=== PATIENT | female | born 1945 ===

== ENCOUNTER 2017-02-14 03:22 | Emergency (ER) | payer MEDICARE ==
[2017-02-14 03:53] VITALS: BP 154/87; PULSE 92; RESP 16; TEMP 98.4; O2SAT 99
--- NOTE | 2017-02-14 04:14 | ED PDOC ---
Hyperglycemia/Hypoglycemia Time Seen by Provider: 02/14/17 03:46 Chief Complaint (Nursing): High Blood Sugar Chief Complaint (Provider): dizziness History Per: Patient History/Exam Limitations: no limitations Onset/Duration Of Symptoms: Hrs Current Symptoms Are (Timing): Still Present Severity: Mild : The patient does not have any of the infectious symptoms listed except for those marked. Additional Complaint(s): Patient is a 71 year old female, who has a history of diabetes, presents to the ED complaining of dizziness at 00:00 today. Patient reports she was playing a game on her phone when she felt the room spinning. Patient went to lay down and when she changed positions the room again felt like it was spinning. Patient also complains of mild temporal headache. Denies trauma. Patient feels better since arriving to the ED. PMD: Patrick Holloway NIHSS Stroke Scale - Date/Time Evaluation Performed Date Performed: 02/14/17 Time Performed: 04:13 When Was NIHSS Performed: Baseline - How Severe is the Stroke Level of Consciousness: 0=Alert LOC to Questions: 0=Both comments correct LOC to commands: 0=Obeys both correctly Best Gaze: 0=Normal Visual: 0=No visual loss Facial: 0=Normal Motor Arm - Left: 0=No drift Motor Arm - Right: 0=No drift Motor Leg - Left: 0=No drift Motor Leg - Right: 0=No drift Limb Ataxia: 0=Absent Sensory: 0=Normal Best Language: 0=No aphasia Dysarthia: 0=Normal articulation Extinction & Inattention (Neglect): 0=Normal, no object Score: 0 Past Medical History Reviewed: Historical Data, Nursing Documentation, Vital Signs Vital Signs: Last Vital Signs Temp 98.4 F 02/14/17 03:49 Pulse 92 H 02/14/17 03:49 Resp 16 02/14/17 03:49 BP 154/87 H 02/14/17 03:49 Pulse Ox 99 02/14/17 03:49 - Medical History PMH: Diabetes - Family History Family History: States: No Known Family Hx - Home Medications Home Medications: Ambulatory Orders Medication Instructions Recorded Meclizine [Meclizine*] 25 mg PO Q6 #30 tab 02/14/17 - Allergies Allergies/Adverse Reactions: Allergies Allergy/AdvReac Type Severity Reaction Status Date / Time No Known Allergies Allergy Unverified 06/09/15 15:27 Review of Systems ROS Statement: Except As Marked, All Systems Reviewed And Found Negative Constitutional: Negative for: Fever Gastrointestinal: Negative for: Nausea Neurological: Positive for: Dizziness Physical Exam - Reviewed Nursing Documentation Reviewed: Yes Vital Signs Reviewed: Yes - Physical Exam Appears: Positive for: Well, Non-toxic, No Acute Distress Head Exam: Positive for: ATRAUMATIC, NORMAL INSPECTION, NORMOCEPHALIC Skin: Positive for: Normal Color, Warm, DRY Cardiovascular/Chest: Positive for: Regular Rate, Rhythm. Negative for: Gallop , Murmur Respiratory: Positive for: Normal Breath Sounds. Negative for: Accessory Muscle Use, Rhonchi, Respiratory Distress Extremity: Positive for: Normal ROM Neurologic/Psych: Positive for: Alert, admissions coordinator II-XII (intact), Oriented, Cerebellar Tests (negative), Gait (steady). Negative for: Motor/Sensory Deficits, Facial Droop - Laboratory Results Result Diagrams: 02/14/17 04:38 02/14/17 04:38 - ECG O2 Sat by Pulse Oximetry: 99 (RA) Pulse Ox Interpretation: Normal Medical Decision Making Medical Decision Making: Time: 3:50 Impression: vertigo Plan: CT Head BMP Troponin UDip CBC Antivert 50 mg PO Toradol 15 mg IV UA 6:30 Patient is feeling much better no longer dizzy walking around ed well no headache. Return precautions given. Discussed results and plan with patient who expresses understanding. Counseling was provided regarding the diagnosis and prognosis. All questions answered and there is agreement with the plan to discharge home with instructions. Patient stable for discharge. Return if symptoms persist or worsen. Scribe Attestation: Documented by Viky Cuello acting as a scribe for Erik Armstrong MD. Scribe Attestation: All medical record entries made by the Scribe were at my direction and personally dictated by me. I have reviewed the chart and agree that the record accurately reflects my personal performance of the history, physical exam, medical decision making, and the department course for this patient. I have also personally directed, reviewed, and agree with the discharge instructions and disposition. Disposition - Clinical Impression Clinical Impression: Vertigo - Patient ED Disposition Is Patient to be Admitted: No Counseled Patient/Family Regarding: Studies Performed, Diagnosis, Rx Given - Disposition Referrals: Patrick Holloway MD [Primary Care Provider] - Disposition: Routine/Home Disposition Time: 06:30 Condition: IMPROVED Prescriptions: Meclizine [Meclizine*] 25 mg PO Q6 #30 tab Instructions: Benign Paroxysmal Positional Vertigo (ED) Print Language: ARABIC
--- NOTE | 2017-02-14 04:39 | CT ---
EXAM: CT Head Without Intravenous Contrast CLINICAL HISTORY: 71 years old, female; Signs and symptoms; Dizziness; Additional info: Headache, dizziness TECHNIQUE: Axial computed tomography images of the head/brain without intravenous contrast. This CT exam was performed using one or more of the following dose reduction techniques: automated exposure control, adjustment of the mA and/or kV according to patient size, and/or use of iterative reconstruction technique. Coronal and sagittal reformatted images were created and reviewed. EXAM DATE/TIME: 02/14/2017 3:54 AM COMPARISON: No relevant prior studies available. FINDINGS: BRAIN: Scattered, tiny, round calcifications are seen in the brain bilaterally. Areas of low density in the periventricular white matter bilaterally, most likely representing mild chronic small vessel ischemic changes. Physiologic basal ganglia calcification. Diffuse, age-related cortical atrophy and ventriculomegaly. No significant acute abnormality identified. No acute hemorrhage seen within the brain. No acute extra-axial fluid collections visualized. No evidence of significant mass effect within the brain. Normal mendez-white matter differentiation. VENTRICLES: See above. BONES/JOINTS: No acute fractures or other acute bony abnormality noted. SOFT TISSUES: No acute abnormality of the visualized soft tissues is seen. SINUSES: Visualized paranasal sinuses appear clear. MASTOID AIR CELLS: Mastoid air cells appear clear. IMPRESSION: - No acute findings seen within the brain. - See above for remaining findings.
[2017-02-14 04:44] LABS: RBC URINE 1 /hpf (0-3); URINE BACTERIA RARE (<OCC); URINE BILIRUBIN NEGATIVE (NEGATIVE); URINE BLOOD NEGATIVE (NEGATIVE); URINE COLOR COLORLESS (YELLOW); URINE GLUCOSE (UA) >=500 mg/dL (Normal); URINE KETONE NEGATIVE (NEGATIVE); URINE LEUKOCYTE ESTERASE NEG Leu/uL (Negative); URINE PROTEIN NEGATIVE (NEGATIVE); URINE UROBILINOGEN 0.2-1.0 mg/dL (0.2-1.0)
[2017-02-14 04:50] LABS: BLOOD UREA NITROGEN 16 mg/dl (7-17); CALCIUM 9.2 mg/dL (8.4-10.2); CARBON DIOXIDE 23 mmol/L (22-30); CHLORIDE 108 mmol/L (98-107); GFR AFRICAN-AMERICAN > 60; GLUCOSE,RANDOM 260 mg/dL (65-105); POTASSIUM 4.1 MMOL/L (3.6-5.0); SODIUM 144 mmol/l (132-148)
[2017-02-14 04:51] LABS: BASO % 0.5 % (0.0-2.0); EOS # 1.2 K/uL (0.0-0.7); EOS % 14.7 % (0.0-4.0); HEMATOCRIT 40.4 % (34.0-47.0); LYMPH # 2.3 K/uL (1.0-4.3); LYMPH % 27.4 % (20.0-40.0); MEAN CELL VOLUME 90.4 fl (81.0-99.0); MEAN CORPUSCULAR HEMOGLOBIN 29.5 pg (27.0-31.0); MEAN CORPUSCULAR HGB CONC 32.6 g/dL (33.0-37.0); MEAN PLATELET VOLUME 8.4 fl (7.2-11.7); MONO # 0.5 K/uL (0.0-0.8); MONO % 5.6 % (0.0-10.0); NEUT # 4.4 K/uL (1.8-7.0); NEUT % 51.8 % (50.0-75.0); NRBC % 0.1 % (0.0-0.0); RED CELL DISTRIBUTION WIDTH 13.4 % (11.5-14.5); WHITE BLOOD COUNT 8.5 K/uL (4.8-10.8)
--- NOTE | 2017-02-14 12:21 | CARD ---
APPROVED REPORT EKG Measurement Heart [id number] <Conclusion> Normal sinus rhythm Right bundle branch block Left posterior fascicular block Bifascicular block Abnormal ECG
== END 2017-02-14 06:47 | disposition home or self-care (01) ==
LOC: H.ER 03:22
DX: R42 Dizziness and giddiness (principal); E11.9 Type 2 diabetes mellitus without complications; I44.5 Left posterior fascicular block
CPT/HCPCS: 70450; 80048; 81003; 84484; 85025; 93005; 96374; 99282; J1885

== ENCOUNTER 2018-01-06 23:54 | Observation (INO) | payer MEDICARE ==
[2018-01-07 00:34] LABS: BASO # 0.1 K/uL (0.0-0.2); BASO % 0.8 % (0.0-2.0); EOS # 1.3 K/uL (0.0-0.7); EOS % 12.6 % (0.0-4.0); HEMOGLOBIN 14.5 g/dL (12.0-16.0); LYMPH # 3.1 K/uL (1.0-4.3); LYMPH % 29.8 % (20.0-40.0); MEAN CELL VOLUME 91.1 fl (81.0-99.0); MEAN CORPUSCULAR HEMOGLOBIN 29.9 pg (27.0-31.0); MEAN CORPUSCULAR HGB CONC 32.8 g/dL (33.0-37.0); MEAN PLATELET VOLUME 8.2 fl (7.2-11.7); MONO # 0.6 K/uL (0.0-0.8); MONO % 5.8 % (0.0-10.0); NEUT # 5.3 K/uL (1.8-7.0); NRBC % 0.1 % (0.0-0.0); RBC 4.86 Mil/uL (3.80-5.20); RED CELL DISTRIBUTION WIDTH 13.1 % (11.5-14.5); WHITE BLOOD COUNT 10.4 K/uL (4.8-10.8)
[2018-01-07 00:44] LABS: BLOOD UREA NITROGEN 19 mg/dl (7-17); CALCIUM 9.8 mg/dL (8.4-10.2); GFR AFRICAN-AMERICAN > 60; GFR NON-AFRICAN AMERICAN > 60
[2018-01-07 00:46] LABS: INR 0.9 (0.9-1.2); PARTIAL THROMBOPLASTIN TIME 31.9 Seconds (25.6-37.1); PROTHROMBIN TIME 10.1 Seconds (9.8-13.1)
--- NOTE | 2018-01-07 01:00 | ED PDOC ---
Syncope/Near Syncope/Dizziness Time Seen by Provider: 01/07/18 00:17 Chief Complaint (Nursing): Dizziness/Lightheaded Chief Complaint (Provider): Dizziness/ Lightheaded History Per: Patient History/Exam Limitations: no limitations Onset/Duration Of Symptoms: Mins (just prior to arrival) Current Symptoms Are (Timing): Still Present Additional History Per: EMS Additional Complaint(s): 72 yo female with a history of Diabetes, Hypertension, and Vertigo, presents to the ED complaining of feeling dizzy and lightheaded when watching tv at home, onset of just prior to arrival. EMS was called and reports that her heart rate was 36bpm upon arrival to her house and continued to be 36bpm on arrival to the ED as well. Patient reports feeling better on arrival to the ED, but complains of chest pain and difficulty to taking a deep breath in. Past Medical History Reviewed: Historical Data, Nursing Documentation, Vital Signs Vital Signs: Last Vital Signs Temp 97.8 F 01/07/18 00:01 Pulse 106 H 01/07/18 00:01 Resp 20 01/07/18 00:01 BP 148/82 01/07/18 00:01 Pulse Ox 99 01/07/18 00:01 - Medical History PMH: Diabetes, HTN Other PMH: Vertigo - Surgical History Surgical History: No Surg Hx - Family History Family History: States: Unknown Family Hx - Social History Current smoker - smoking cessation education provided: No Ex-Smoker (has not smoked in the last 12 months): No Alcohol: None Drugs: Denies - Home Medications Home Medications: Ambulatory Orders Medication Instructions Recorded Diclofen Sod/Kinesiology Tape 1 each TP QID 01/07/18 [Diclo Gel 1%-Xrylix Sheet Kit] Fluticasone Propionate [Flovent 50 mcg IH PRN PRN 01/07/18 Diskus] - Allergies Allergies/Adverse Reactions: Allergies Allergy/AdvReac Type Severity Reaction Status Date / Time No Known Allergies Allergy Verified 01/06/18 23:57 Review of Systems ROS Statement: Except As Marked, All Systems Reviewed And Found Negative Constitutional: Negative for: Fever Cardiovascular: Positive for: Chest Pain, Light Headedness Respiratory: Positive for: Shortness of Breath Neurological: Positive for: Dizziness Physical Exam - Reviewed Nursing Documentation Reviewed: Yes Vital Signs Reviewed: Yes - Physical Exam Appears: Positive for: Well, Non-toxic, No Acute Distress Head Exam: Positive for: ATRAUMATIC, NORMAL INSPECTION, NORMOCEPHALIC Skin: Positive for: Normal Color, Warm, DRY Eye Exam: Positive for: EOMI, Normal appearance, PERRL ENT: Positive for: Normal ENT Inspection Neck: Positive for: Normal, Painless ROM Cardiovascular/Chest: Positive for: Regular Rate, Rhythm (regular rhythm), Tachycardia. Negative for: Murmur Respiratory: Positive for: Normal Breath Sounds. Negative for: Respiratory Distress Gastrointestinal/Abdominal: Positive for: Normal Exam, Bowel Sounds, Soft. Negative for: Tenderness Back: Positive for: Normal Inspection Extremity: Positive for: Normal ROM. Negative for: Pedal Edema, Deformity Neurologic/Psych: Positive for: Alert, Oriented. Negative for: Motor/Sensory Deficits - Laboratory Results Result Diagrams: 01/07/18 00:31 01/07/18 00:31 - ECG O2 Sat by Pulse Oximetry: 99 (RA) Pulse Ox Interpretation: Normal Medical Decision Making Medical Decision Making: Time: --00:18 Impression: --Arrhythmia vs pulmonary embolism vs ACS Plan: --Blood Type and Screen --CT Angio Chest --ECG --Real Estate Inspector --Urinalysis Reassess --03:23 CT Scan ANGIO CHEST PE PROTOCOL Exam Date: 01/07/18 This imaging exam was performed at [facility] EXAM: CT Angiography Chest With Intravenous Contrast CLINICAL HISTORY: 72 years old, female; Signs and symptoms; Orthopnea (sob when lying down); Additional info: R/O pe TECHNIQUE: Axial computed tomographic angiography images of the chest with intravenous contrast using pulmonary embolism protocol. All CT scans at this facility use one or more dose reduction techniques, viz.: automated exposure control; ma/kV adjustment per patient size (including targeted exams where dose is matched to indication; i.e. head); or iterative reconstruction technique. 1019 images are submitted. MIP reconstructed images were created and reviewed. Coronal and sagittal reformatted images were created and reviewed. CONTRAST: 95 mL of visipaque 320 administered intravenously. COMPARISON: No relevant prior studies available. FINDINGS: Pulmonary arteries: No CT evidence for pulmonary embolus. Aorta: Bovine aortic arch. No thoracic aortic aneurysm. Lungs: Mild parabronchial cuffing, which can be seen with bronchitis, reactive airway disease or viral pneumonitis versus mild failure.There is bibasilar atelectasis. No mass. Pleural space: Unremarkable. No significant effusion. No pneumothorax. Heart: Cardiomegaly with small pericardial effusion. Mediastinum: Small hiatal hernia. Bones/joints: Degenerative changes. No acute fracture. No dislocation. Soft tissues: Unremarkable. Lymph nodes: Unremarkable. No enlarged lymph nodes. Adrenals: The left adrenal gland is incompletely visualized. Normal right adrenal gland. Stomach and bowel: Large amount of stool in the colon. Correlation with patient's clinical history of constipation is recommended. IMPRESSION: 1. No CT evidence for pulmonary embolus. 2. Mild parabronchial cuffing, which can be seen with bronchitis, reactive airway disease or viral pneumonitis versus mild failure.There is bibasilar atelectasis. Case discussed with Dr. Moreno, will place in OBS for continuous cardiac monitoring and serial troponins given symptoms, age, and cardiac risk factors. Scribe Attestation: Documented by Luigi Nicole acting as a scribe for Erik Armstrong MD. Provider Attestation: All medical record entries made by the Scribe were at my direction and personally dictated by me. I have reviewed the chart and agree that the record accurately reflects my personal performance of the history, physical exam, medical decision making, and the department course for this patient. I have also personally directed, reviewed, and agree with the discharge instructions and disposition. Disposition - Clinical Impression Clinical Impression: Chest pain - Disposition Disposition Time: 03:00 Condition: IMPROVED
[2018-01-07] MEDS ORDERED: Sodium Chloride 0.9% 100 ML ONE (02:14)
[2018-01-07] MEDS ORDERED: Iodixanol 320 MG/ML 100 ML BOTTLE IV ONE (02:14)
--- NOTE | 2018-01-07 02:55 | CP.PCM.HP ---
History of Present Illness - History of Present Illness History of Present Illness: CC: palpitations and chest pain HPI: 72 F PMH palpitations, anxiety, DM, HTN, presents with a several hour history of persistent palpitations, not ameliorated by anything, while patient was at rest watching her telenovela. EMS found HR to be 36 but was awake, alert and oriented, however with some dizziness, and in ED, pt became tachycardic 118- 146, currently in mid-90s. CTA neg for PE. She states she feels improved, however did experience some pressure like chest pain. Upon review of prior visits, patient did have a holter monitor approximately [address] Drummond, which was benign. She was diagnosed with anxiety. Monitor for chest pain, ACS, further episodes of bradycardia. HD stable, NAD. Note: patient unable to recall home medications PMD: Amie Senior Infrastructure Engineer: [place] PMH: HTN, DM PSH: glaucoma, cataract, c/s x2 FH: denies SH: denies tobacco, ETOH, IVDU patient does not know medications NKDA Present on Admission - Present on Admission Any Indicators Present on Admission: No Past Patient History - Past Social History Alcohol: None Drugs: Denies - CARDIAC Hx Hypertension: Yes - ENDOCRINE/METABOLIC Hx Diabetes Mellitus Type 2: Yes - PSYCHIATRIC Hx Substance Use: No - SURGICAL HISTORY Hx Surgeries: No - ANESTHESIA Hx Anesthesia: No Meds Allergies/Adverse Reactions: Allergies Allergy/AdvReac Type Severity Reaction Status Date / Time No Known Allergies Allergy Verified 01/06/18 23:57 Physical Exam - Constitutional Appears: Non-toxic, No Acute Distress - Head Exam Head Exam: ATRAUMATIC, NORMOCEPHALIC - Eye Exam Eye Exam: EOMI, Normal appearance, PERRL - ENT Exam ENT Exam: Mucous Membranes Moist, Normal Oropharynx - Respiratory Exam Respiratory Exam: Clear to Auscultation Bilateral, NORMAL BREATHING PATTERN. absent: Rales, Rhonchi - Cardiovascular Exam Cardiovascular Exam: Tachycardia, REGULAR RHYTHM, +S1, +S2 - GI/Abdominal Exam GI & Abdominal Exam: Normal Bowel Sounds, Soft. absent: Mass, Organomegaly, Tenderness - Back Exam Back exam: NORMAL INSPECTION. absent: CVA tenderness (L), CVA tenderness (R), rash noted - Neurological Exam Neurological exam: Alert, Oriented x3 - Psychiatric Exam Psychiatric exam: Normal Affect, Normal Mood - Skin Skin Exam: Dry, Normal Color, Warm Results - Vital Signs Recent Vital Signs: Last Vital Signs Temp 97.8 F 01/07/18 00:01 Pulse 106 H 01/07/18 00:01 Resp 20 01/07/18 00:01 BP 148/82 01/07/18 00:01 Pulse Ox 99 01/07/18 01:08 - Labs Result Diagrams: 01/07/18 00:31 01/07/18 00:31 Labs: Laboratory Results - last 24 hr 01/07/18 01/07/18 01/07/18 00:31 00:31 00:31 WBC 10.4 RBC 4.86 Hgb 14.5 Hct 44.2 MCV 91.1 MCH 29.9 MCHC 32.8 L RDW 13.1 Plt Count 238 MPV 8.2 Neut % (Auto) 51.0 Lymph % (Auto) 29.8 Falls % (Auto) 5.8 Eos % (Auto) 12.6 H Baso % (Auto) 0.8 Neut # (Auto) 5.3 Lymph # (Auto) 3.1 Falls # (Auto) 0.6 Eos # (Auto) 1.3 H Baso # (Auto) 0.1 PT 10.1 INR 0.9 APTT 31.9 Sodium 140 Potassium 3.9 Chloride 101 Carbon Dioxide 21 L Anion Gap 22 H BUN 19 H Creatinine 0.8 Est GFR ( Amer) > 60 Est GFR (Non-Af Amer) > 60 Random Glucose 228 H Calcium 9.8 Troponin I < 0.0120 Blood Type Antibody Screen BBK History Checked 01/07/18 00:45 WBC RBC Hgb Hct MCV MCH MCHC RDW Plt Count MPV Neut % (Auto) Lymph % (Auto) Falls % (Auto) Eos % (Auto) Baso % (Auto) Neut # (Auto) Lymph # (Auto) Falls # (Auto) Eos # (Auto) Baso # (Auto) PT INR APTT Sodium Potassium Chloride Carbon Dioxide Anion Gap BUN Creatinine Est GFR ( Amer) Est GFR (Non-Af Amer) Random Glucose Calcium Troponin I Blood Type O POSITIVE Antibody Screen Negative BBK History Checked No verified bt Assessment & Plan - Assessment and Plan (Free Text) Plan: 72 F PMH palpitations, anxiety, DM, HTN, presents with a several hour history of persistent palpitations, not ameliorated by anything, while patient was at rest watching her telenovela. EMS found HR to be 36 but was awake, alert and oriented, however with some dizziness, and in ED, pt became tachycardic 118-146 , currently in mid-90s. CTA neg for PE. She states she feels improved, however did experience some pressure like chest pain. Upon review of prior visits, patient did have a holter monitor approximately [address] Drummond , which was benign. She was diagnosed with anxiety. Monitor for chest pain, ACS , further episodes of bradycardia. HD stable, NAD. Palpitations Tachy/Deshawn? Sick Sinus? - pt hx of anxiety and palpitations, holter 9 mo ago; benign Dr. Woodard Senior Infrastructure Engineer - Cardiology consult: will obtain in AM for possible PPM? - Hold BB/ SA node depression - monitor on tele - TSH in AM Chest Pain - monitor telemetry - lipid panel and TSH in AM - no active chest pain, monitor enzymes, no acute EKG changes concerning for ischemia or infarct - ASA 81 mg Mild Azotemia - NS @ 125 one liter DM - accuchecks - ISS HTN - monitor, hold SA node depressive agents - Lisinopril VTE ppx Lovenox
[2018-01-07] MEDS ORDERED: Sodium Chloride 0.9% 1,000 ML IV SCH (03:00)
[2018-01-07 03:09] LABS: SQUAMOUS EPITHIAL < 1 /hpf (0-5); URINE BACTERIA RARE (<OCC); URINE BILIRUBIN NEGATIVE (NEGATIVE); URINE BLOOD NEGATIVE (NEGATIVE); URINE CLARITY SLIGHTY-CLOUDY (Clear); URINE COLOR COLORLESS (YELLOW); URINE GLUCOSE (UA) >=500 mg/dL (Normal); URINE LEUKOCYTE ESTERASE NEG Leu/uL (Negative); URINE NITRATE NEGATIVE (NEGATIVE); URINE PROTEIN NEGATIVE (NEGATIVE); URINE UROBILINOGEN 0.2-1.0 mg/dL (0.2-1.0)
--- NOTE | 2018-01-07 03:24 | CT ---
EXAM: CT Angiography Chest With Intravenous Contrast CLINICAL HISTORY: 72 years old, female; Signs and symptoms; Orthopnea (sob when lying down); Additional info: R/O pe TECHNIQUE: Axial computed tomographic angiography images of the chest with intravenous contrast using pulmonary embolism protocol. All CT scans at this facility use one or more dose reduction techniques, viz.: automated exposure control; ma/kV adjustment per patient size (including targeted exams where dose is matched to indication; i.e. head); or iterative reconstruction technique. 1019 images are submitted. MIP reconstructed images were created and reviewed. Coronal and sagittal reformatted images were created and reviewed. CONTRAST: 95 mL of visipaque 320 administered intravenously. COMPARISON: No relevant prior studies available. FINDINGS: Pulmonary arteries: No CT evidence for pulmonary embolus. Aorta: Bovine aortic arch. No thoracic aortic aneurysm. Lungs: Mild parabronchial cuffing, which can be seen with bronchitis, reactive airway disease or viral pneumonitis versus mild failure.There is bibasilar atelectasis. No mass. Pleural space: Unremarkable. No significant effusion. No pneumothorax. Heart: Cardiomegaly with small pericardial effusion. Mediastinum: Small hiatal hernia. Bones/joints: Degenerative changes. No acute fracture. No dislocation. Soft tissues: Unremarkable. Lymph nodes: Unremarkable. No enlarged lymph nodes. Adrenals: The left adrenal gland is incompletely visualized. Normal right adrenal gland. Stomach and bowel: Large amount of stool in the colon. Correlation with patient's clinical history of constipation is recommended. IMPRESSION: 1. No CT evidence for pulmonary embolus. 2. Mild parabronchial cuffing, which can be seen with bronchitis, reactive airway disease or viral pneumonitis versus mild failure.There is bibasilar atelectasis.
[2018-01-07 06:27] LABS: BLOOD UREA NITROGEN 17 mg/dl (7-17); CALCIUM 9.5 mg/dL (8.4-10.2); GFR AFRICAN-AMERICAN > 60; GFR NON-AFRICAN AMERICAN > 60; HDL CHOLESTEROL 30 MG/DL (30-70)
[2018-01-07 06:38] LABS: LDL CHOLESTEROL 42 mg/dL (0-129)
[2018-01-07] MEDS ORDERED: Enoxaparin 60 mg Syringe SC STA (08:09)
--- NOTE | 2018-01-07 08:19 | CARD ---
APPROVED REPORT EKG Measurement Heart [id number] <Conclusion> Sinus tachycardia Right bundle branch block Abnormal ECG
[2018-01-07] MEDS: Insulin Lispro (humaLOG) 100 Units/ml Inj SC SCH ×4 (08:46→22:00)
[2018-01-07] MEDS ORDERED: Enoxaparin 40 mg Syringe SC SCH (09:00)
--- NOTE | 2018-01-07 13:55 | CARD ---
APPROVED REPORT EXAM: Two-dimensional and M-mode echocardiogram with Doppler and color Doppler. Other Information Quality : GoodRhythm : NSR INDICATION +Troponin 2D DIMENSIONS IVSd1.39 (0.7-1.1cm)LVDd3.25 (3.9-5.9cm) LVOT Diameter1.77 (1.8-2.4cm)PWd1.00 (0.7-1.1cm) IVSs1.29 (0.8-1.2cm)LVDs2.16 (2.5-4.0cm) FS (%) 33.6 %PWs1.07 (0.8-1.2cm) M-Mode DIMENSIONS Left Atrium (MM)4.35 (2.5-4.0cm)IVSd1.10 (0.7-1.1cm) Aortic Root2.97 (2.2-3.7cm)LVDd4.88 (4.0-5.6cm) Aortic Cusp Exc.1.74 (1.5-2.0cm)PWd1.06 (0.7-1.1cm) IVSs1.84 cmFS (%) 52 % LVDs2.35 (2.0-3.8cm)PWs1.43 cm Aortic Valve AoV Peak Lnduclue366.6cm/sAoV VTI36.4cmAO Peak GR.12mmHg LVOT Peak Zpcsfeui054.1cm/sLVOT VTI21.65cmAO Mean GR.8mmHg JOMAR (VMAX)0.73nb8FHU (VTI)0.93cm2 Mitral Valve MV E Hpimsefg15.5cm/sMV DECEL [id number] A Jtizzhwo81.9cm/s MV UQR59lxY/A ratio0.8MVA (PHT)3.05cm2 TDI Lateral E' Peak V9.04cm/sMedial E' Peak V6.27cm/sE/Lateral E'8.7 E/Medial E'12.5 Pulmonary Valve PV Peak Ysplickx88.8cm/s Tricuspid Valve TR Peak Ozwppdax436pt/sRAP [id number] Peak Gr.4mmHg [id number] LEFT VENTRICLE The left ventricle is normal size. There is normal left ventricular wall thickness. Left ventricle systolic function is normal. The Ejection Fraction is >70%. There is normal LV segmental wall motion. Transmitral Doppler flow pattern is Grade I-abnormal relaxation pattern. RIGHT VENTRICLE The right ventricle is normal size. There is normal right ventricular wall thickness. The right ventricular systolic function is normal. ATRIA The left atrium size is normal. The right atrium size is normal. AORTIC VALVE The aortic valve is mildly to moderately sclerotic. No aortic regurgitation is present. A trivial peak syst gradient of 12 mm Hg was recorded at the aotric valve. MITRAL VALVE The mitral valve is normal in structure. There is no evidence of mitral valve prolapse. There is no mitral valve stenosis. There is no mitral valve regurgitation noted. TRICUSPID VALVE The tricuspid valve is normal in structure. There is trace tricuspid regurgitation. PULMONIC VALVE The pulmonary valve is normal in structure. There is no pulmonic valvular regurgitation. GREAT VESSELS The aortic root is normal in size. The IVC is normal in size and collapses >50% with inspiration. PERICARDIAL EFFUSION The pericardium appears normal. <Conclusion> The left ventricle is normal size. There is normal left ventricular wall thickness. There is normal LV segmental wall motion. Left ventricle systolic function is normal. The Ejection Fraction is >70%. Transmitral Doppler flow pattern is Grade I-abnormal relaxation pattern. The aortic valve is mildly to moderately sclerotic. A trivial peak syst gradient of 12 mm Hg was recorded at the aotric valve.
--- NOTE | 2018-01-07 15:46 | CP.PCM.CON ---
History of Present Illness - History of Present Illness History of Present Illness: pt presents with acute onset of chest pain yesterday x 1. ant chest pressure, non radiating, lasting 5 min and resolving on own. has some sanchez, no orthopnea or pnd. ekg reveals rbbb with abn st segments in lat and inf cabral. trop elevated on 2nd draw. per records pt developed bradycardia with hr in 30s upon ems arrival on scene. vs have been stable tsh mildly elevated. CTA ruled out PE Review of Systems - Constitutional Constitutional: As Per HPI. absent: Anorexia, Chills, Daytime Sleepiness, Excessive Sweating, Fatigue, Fever, Frequent Falls, Headache, Increased Appetite , Lethargy, Malaise, Night Sweats, Snoring, Sleep Apnea, Weight Gain, Weight Loss, Weakness, Other - EENT Eyes: As Per HPI. absent: Blind Spots, Blurred Vision, Change in Vision, Decreased Night Vision, Diplopia, Discharge, Dry Eye, Exophthalmos, Floaters, Irritation, Itchy Eyes, Loss of Peripheral Vision, Pain, Photophobia, Requires Corrective Lenses, Sees Flashes, Spots in Vision, Tunnel Vision, Other Visual Disturbances, Loss of Vision, Other Ears: As Per HPI. absent: Decreased Hearing, Ear Discharge, Ear Pain, Tinnitus , Abnormal Hearing, Disequilibrium, Dizziness, Other Nose/Mouth/Throat: As Per HPI. absent: Epistaxis, Nasal Congestion, Nasal Discharge, Nasal Obstruction, Nasal Trauma, Nose Pain, Post Nasal Drip, Sinus Pain, Sinus Pressure, Bleeding Gums, Change in Voice, Dental Pain, Dry Mouth, Dysphagia, Halitosis, Hoarsness, Lip Swelling, Mouth Lesions, Mouth Pain, Odynophagia, Sore Throat, Throat Swelling, Tongue Swelling, Facial Pain, Neck Pain, Neck Mass, Other - Breasts Breasts: As Per HPI. absent: Change in Shape, Mass, Pain, Nipple Discharge, Nipple Inversion, Skin Changes, Swelling, Other - Cardiovascular Cardiovascular: As Per HPI, Chest Pain, Chest Pain at Rest, Chest Pain with Activity, Dyspnea. absent: Acrocyanosis, Claudication, Diaphoresis, Dyspnea on Exertion, Edema, Irregular Heart Rhythm, Pain Radiating to Arm/Neck/Jaw, Leg Edema, Leg Ulcers, Lightheadedness, Orthopnea, Palpitations, Paroxysmal Nocturnal Dyspnea, Pedal Edema, Radiating Pain, Rapid Heart Rate, Slow Heart Rate, Syncope, Other - Respiratory Respiratory: As Per HPI. absent: Cough, Dyspnea, Hemoptysis, Dyspnea on Exertion, Wheezing, Snoring, Stridor, Pain on Inspiration, Chest Congestion, Excessive Mucous Production, Change in Mucous Color, Pain with Coughing, Other - Gastrointestinal Gastrointestinal: As Per HPI. absent: Abdominal Pain, Belching, Bloating, Change in Bowel Habits, Change in Stool Character, Coffee Ground Emesis, Constipation, Cramping, Diarrhea, Dyspepsia, Dysphagia, Early Satiety, Excessive Flatus, Fecal Incontinence, Heartburn, Hematemesis, Hematochezia, Loose Stools, Melena, Nausea, Odynophagia, Temesmus, Vomiting, Other - Genitourinary Genitourinary: As Per HPI. absent: Change in Urinary Stream, Difficulty Urinating, Dysuria, Flank Pain, Hematuria, Pyuria, Nocturia, Urinary Incontinence, Urinary Frequency, Urinary Hesitance, Urinary Urgency, Voiding Freq/Small Amts, Freq UTI, Hx Renal/Bladder Calculi, Hx /Renal Surgery, Bladder Distension, Other - Reproductive: Female Reproductive:Female: As Per HPI. absent: Amenorrhea, Amenorrhea/ Control, Currently Menstual, Cycle <21 Days, Cycle >35 Days, Cycle Variable, Menses 1-7 Days, Menses >/= 8 Days, Menses Variable, Cycle > 4 Weeks Between, No Menses for 6 Months, Heavy Menses, Light Menses, Normal Menses, Spotting Between Cycles , S/P Hysterectomy, Menopausal, Post Menopausal, Premenarche, Abnormal Vaginal Bleeding, Dysmenorrhea, Dyspareunia, Genital Lesions, Genital Pruritis, Pelvic Pain, Prolapse Symptoms, Sexual Dysfunction, Vaginal Discharge, Vaginal Dryness , Vaginal Odor, Vaginal Pruritis, Other - Musculoskeletal Musculoskeletal: As Per HPI. absent: Abnormal Gait, Arthralgias, Atrophy, Back Pain, Deformity, Joint Swelling, Limited Range of Motion, Loss of Height, Muscle Cramps, Muscle Weakness, Myalgias, Neck Pain, Numbness, Radiating Pain into Limb, Stiffness, Tingling, Other - Integumentary Integumentary: As Per HPI. absent: Acne, Alopecia, Bleeding Lesions, Change in Hair, Change in Nails, Change in Pigmentation, Changing Lesions, Dry Skin, Erythema, Furuncle, Hirsutism, Lesions, New Lesions, Non-Healing Lesions, Photosensitivity, Pruritus, Rash, Skin Pain, Skin Ulcer, Sores, Striae, Swelling , Unusual Bruising, Wounds, Jaundice, Other - Neurological Neurological: As Per HPI. absent: Abnormal Gait, Abnormal Hearing, Abnormal Movements, Abnormal Speech, Behavioral Changes, Burning Sensations, Confusion, Convulsions, Disequilibrium, Dizziness, Numbness, Focal Weakness, Frequent Falls , Headaches, Lack of Coordination, Loss of Vision, Memory Loss, Paresthesias, Radicular Pain, Restless Legs, Sensory Deficit, Syncope, Tingling, Tremor, Vertigo, Weakness, Other Visual Disturbances, Other - Psychiatric Psychiatric: As Per HPI. absent: Abnormal Sleep Pattern, Anhedonia, Anxiety, Auditory Hallucinations, Behavioral Changes, Change in Appetite, Change in Libido, Confusion, Depression, Difficulty Concentrating, Hallucinations, Homicidal Ideation, Hopelessness, Irritability, Memory Loss, Mood Swings, Panic Attacks, Paranoia, Suicidal Ideation, Visual Hallucinations, Tactile Hallucinations, Other - Endocrine Endocrine: As Per HPI. absent: Change in Body Appearance, Change in Libido, Cold Intolorance, Deepening of Voice, Excessive Sweating, Fatigue, Flushing, Heat Intolorance, Increase in Ring/Shoe/Hat Size, Palpitations, Polydipsia, Polyphagia, Polyuria, Other - Hematologic/Lymphatic Hematologic: As Per HPI. absent: Easy Bleeding, Easy Bruising, Lymphadenopathy , Other Past Patient History - Tetanus Immunizations Tetanus Immunization: Unknown - Past Medical History & Family History Past Medical History?: Yes - Past Social History Smoking Status: Never Smoked Chewing Tobacco Use: No Cigar Use: No Alcohol: None Drugs: Denies Home Situation {Lives}: With Family Domestic Violence: Negative - CARDIAC Hx Cardiac Disorders: Yes (HTN) - PULMONARY Hx Respiratory Disorders: No - NEUROLOGICAL Hx Neurological Disorder: No - HEENT Hx HEENT Problems: No - RENAL Hx Chronic Kidney Disease: No - ENDOCRINE/METABOLIC Hx Endocrine Disorders: Yes (DM) - HEMATOLOGICAL/ONCOLOGICAL Hx Blood Disorders: No - INTEGUMENTARY Hx Dermatological Problems: No - MUSCULOSKELETAL/RHEUMATOLOGICAL Hx Musculoskeletal Disorders: No - GENITOURINARY/GYNECOLOGICAL Hx Genitourinary Disorders: No - PSYCHIATRIC Hx Psychophysiologic Disorder: No - SURGICAL HISTORY Hx Surgeries: No - ANESTHESIA Hx Anesthesia: No Meds Allergies/Adverse Reactions: Allergies Allergy/AdvReac Type Severity Reaction Status Date / Time No Known Allergies Allergy Verified 01/06/18 23:57 - Medications Medications: Current Medications Aspirin (Aspirin Chewable) 81 mg PO DAILY [facility] Last Admin: 01/07/18 08:48 Dose: 81 mg Atorvastatin Calcium (Lipitor) 40 mg PO DAILY [facility] Last Admin: 01/07/18 11:01 Dose: 40 mg Clopidogrel Bisulfate (Plavix) 75 mg PO DAILY [facility] Last Admin: 01/07/18 08:52 Dose: 75 mg Famotidine (Pepcid) 20 mg PO BID [facility] Last Admin: 01/07/18 08:52 Dose: 20 mg Insulin Human Lispro (Humalog) 0 units SC ACHS [facility] PRN Reason: Protocol Last Admin: 01/07/18 12:38 Dose: Not Given Lisinopril (Zestril) 10 mg PO DAILY [facility] Last Admin: 01/07/18 08:48 Dose: 10 mg Metoprolol Tartrate (Lopressor) 12.5 mg PO Q12 [facility] Last Admin: 01/07/18 11:00 Dose: 12.5 mg Physical Exam - Constitutional Appears: Non-toxic - Head Exam Head Exam: ATRAUMATIC, NORMAL INSPECTION, NORMOCEPHALIC - Eye Exam Eye Exam: EOMI, Normal appearance, PERRL. absent: Conjunctival injection, Nystagmus, Periorbital swelling, Periorbital tenderness, Scleral icterus Pupil Exam: NORMAL ACCOMODATION, PERRL. absent: Fixed, Irregular, Miosis, Mydriatic, Unequal - ENT Exam ENT Exam: Mucous Membranes Moist, Normal Exam. absent: Mucous Membranes Dry, Normal External Ear Exam, Normal Oropharynx, TM's Normal Bilaterally - Neck Exam Neck exam: Positive for: Normal Inspection. Negative for: Full Rom, Lymphadenopathy, Meningismus, Tenderness, Thyromegaly - Respiratory Exam Respiratory Exam: Clear to Auscultation Bilateral, NORMAL BREATHING PATTERN. absent: Accessory Muscle Use, Chest Wall Tenderness, Decreased Breath Sounds, Prolonged Expiratory Phase, Rales, Rhonchi, Wheezes, Respiratory Distress, Stridor - Cardiovascular Exam Cardiovascular Exam: Diastolic murmur, REGULAR RHYTHM, +S1, +S2, Systolic Murmur. absent: Bradycardia, Tachycardia, Clicks, Gallop, Irregular Rhythm, JVD , RRR, Rubs, +S4 - GI/Abdominal Exam GI & Abdominal Exam: Normal Bowel Sounds, Soft. absent: Bruit, Diminished Bowel Sounds, Distended, Firm, Guarding, Hernia, Hyperactive Bowel Sounds, Hypoactive Bowel Sounds, Mass, Organomegaly, Pulsatile Mass, Rebound, Rigid, Tenderness - Rectal Exam Rectal Exam: Deferred - Extremities Exam Extremities exam: Positive for: normal inspection. Negative for: calf tenderness, full ROM, joint swelling, normal capillary refill, pedal edema, tenderness, pedal pulses present - Back Exam Back exam: NORMAL INSPECTION. absent: CVA tenderness (L), CVA tenderness (R), FULL ROM, muscle spasm, paraspinal tenderness, rash noted, tenderness, vertebral tenderness - Neurological Exam Neurological exam: Alert, CN II-XII Intact, Normal Gait, Oriented x3, Reflexes Normal - Psychiatric Exam Psychiatric exam: Normal Affect, Normal Mood - Skin Skin Exam: Dry, Intact, Normal Color, Warm Results - Vital Signs Recent Vital Signs: Last Vital Signs Temp 98 F 01/07/18 08:00 Pulse 78 01/07/18 11:00 Resp 20 01/07/18 08:00 BP 114/69 01/07/18 11:00 Pulse Ox 97 01/07/18 08:00 - Labs Result Diagrams: 01/07/18 00:31 01/07/18 05:30 Labs: Laboratory Results - last 24 hr 01/07/18 01/07/18 01/07/18 00:31 00:31 00:31 WBC 10.4 RBC 4.86 Hgb 14.5 Hct 44.2 MCV 91.1 MCH 29.9 MCHC 32.8 L RDW 13.1 Plt Count 238 MPV 8.2 Neut % (Auto) 51.0 Lymph % (Auto) 29.8 [place] % (Auto) 5.8 Eos % (Auto) 12.6 H Baso % (Auto) 0.8 Neut # (Auto) 5.3 Lymph # (Auto) 3.1 [place] # (Auto) 0.6 Eos # (Auto) 1.3 H Baso # (Auto) 0.1 PT 10.1 INR 0.9 APTT 31.9 Sodium 140 Potassium 3.9 Chloride 101 Carbon Dioxide 21 L Anion Gap 22 H BUN 19 H Creatinine 0.8 Est GFR ( Amer) > 60 Est GFR (Non-Af Amer) > 60 POC Glucose (mg/dL) Random Glucose 228 H Calcium 9.8 Troponin I < 0.0120 Triglycerides Cholesterol LDL Cholesterol Direct HDL Cholesterol TSH 3rd Generation Urine Color Urine Clarity Urine pH Ur Specific [place] Urine Protein Urine Glucose (UA) Urine Ketones Urine Blood Urine Nitrate Urine Bilirubin Urine Urobilinogen Ur Leukocyte Esterase Urine RBC (Auto) Urine Microscopic WBC Ur Squamous Epith Cells Urine Bacteria Blood Type Blood Type Confirm Antibody Screen BBK History Checked 01/07/18 01/07/18 01/07/18 00:45 02:55 05:30 WBC RBC Hgb Hct MCV MCH MCHC RDW Plt Count MPV Neut % (Auto) Lymph % (Auto) [place] % (Auto) Eos % (Auto) Baso % (Auto) Neut # (Auto) Lymph # (Auto) [place] # (Auto) Eos # (Auto) Baso # (Auto) PT INR APTT Sodium 142 Potassium 3.8 Chloride 103 Carbon Dioxide 24 Anion Gap 19 BUN 17 Creatinine 0.6 L Est GFR ( Amer) > 60 Est GFR (Non-Af Amer) > 60 POC Glucose (mg/dL) Random Glucose 147 H Calcium 9.5 Troponin I Triglycerides 416 H Cholesterol 141 LDL Cholesterol Direct 42 HDL Cholesterol 30 TSH 3rd Generation 6.01 H Urine Color Colorless Urine Clarity Slighty-cloudy Urine pH 7.0 Ur Specific [place] < 1.005 Urine Protein Negative Urine Glucose (UA) >=500 Urine Ketones Negative Urine Blood Negative Urine Nitrate Negative Urine Bilirubin Negative Urine Urobilinogen 0.2-1.0 Ur Leukocyte Esterase Neg Urine RBC (Auto) 1 Urine Microscopic WBC 3 Ur Squamous Epith Cells < 1 Urine Bacteria Rare Blood Type O POSITIVE Blood Type Confirm Antibody Screen Negative BBK History Checked No verified bt 01/07/18 01/07/18 01/07/18 05:30 05:56 07:30 WBC RBC Hgb Hct MCV MCH MCHC RDW Plt Count MPV Neut % (Auto) Lymph % (Auto) [place] % (Auto) Eos % (Auto) Baso % (Auto) Neut # (Auto) Lymph # (Auto) [place] # (Auto) Eos # (Auto) Baso # (Auto) PT INR APTT Sodium Potassium Chloride Carbon Dioxide Anion Gap BUN Creatinine Est GFR ( Amer) Est GFR (Non-Af Amer) POC Glucose (mg/dL) 133 H Random Glucose Calcium Troponin I 0.1630 H* Triglycerides Cholesterol LDL Cholesterol Direct HDL Cholesterol TSH 3rd Generation Urine Color Urine Clarity Urine pH Ur Specific [place] Urine Protein Urine Glucose (UA) Urine Ketones Urine Blood Urine Nitrate Urine Bilirubin Urine Urobilinogen Ur Leukocyte Esterase Urine RBC (Auto) Urine Microscopic WBC Ur Squamous Epith Cells Urine Bacteria Blood Type Blood Type Confirm O POSITIVE Antibody Screen BBK History Checked 01/07/18 08:22 WBC RBC Hgb Hct MCV MCH MCHC RDW Plt Count MPV Neut % (Auto) Lymph % (Auto) [place] % (Auto) Eos % (Auto) Baso % (Auto) Neut # (Auto) Lymph # (Auto) [place] # (Auto) Eos # (Auto) Baso # (Auto) PT INR APTT Sodium Potassium Chloride Carbon Dioxide Anion Gap BUN Creatinine Est GFR ( Amer) Est GFR (Non-Af Amer) POC Glucose (mg/dL) 94 Random Glucose Calcium Troponin I Triglycerides Cholesterol LDL Cholesterol Direct HDL Cholesterol TSH 3rd Generation Urine Color Urine Clarity Urine pH Ur Specific [place] Urine Protein Urine Glucose (UA) Urine Ketones Urine Blood Urine Nitrate Urine Bilirubin Urine Urobilinogen Ur Leukocyte Esterase Urine RBC (Auto) Urine Microscopic WBC Ur Squamous Epith Cells Urine Bacteria Blood Type Blood Type Confirm Antibody Screen BBK History Checked - EKG Data EKG Interpreted by: Myself EKG shows normal: Sinus rhythm - EKG Data When Compared to Previous EKG: Significant Changes Assessment & Plan (1) NSTEMI (non-ST elevated myocardial infarction) Status: Acute (2) RBBB Status: Acute (3) Abnormal EKG Status: Acute (4) Chest pain Status: Acute - Assessment and Plan (Free Text) Plan: PT SHOULD UNDERGO CARDIAC CATH GIVEN RISK FACTORS (DM, HTN), TROP AND ABN EKG. ECHO IMAGES REVIEWED, NML EF, G1 DIASTOLIC, AI. NO FURTHER CP AT THIS POINT. PROCEDURE EXPLAINED TO PT AND FAMILY. THEY ARE IN AGREEMENT. TELE REVEALS NO ANSHUL ARRYTHMIAS.
[2018-01-07 17:07] LABS: TROPONIN I 0.093 ng/mL (0.00-0.120)
[2018-01-07 17:12] LABS: T4 6.53 ug/dl (5.5-11.0)
[2018-01-07 17:26] LABS: T3 0.988 nmol/L (1.49-2.60)
[2018-01-07] MEDS: Fluticasone-Salmeterol 100-50mcg Diskus IH SCH (21:00)
[2018-01-08 00:52] VITALS: RESP 18
[2018-01-08 05:10] LABS: HEMOGLOBIN 13.6 g/dL (12.0-16.0); MEAN CELL VOLUME 89.8 fl (81.0-99.0); MEAN CORPUSCULAR HEMOGLOBIN 29.6 pg (27.0-31.0); MEAN CORPUSCULAR HGB CONC 32.9 g/dL (33.0-37.0); RBC 4.59 Mil/uL (3.80-5.20); RED CELL DISTRIBUTION WIDTH 13.1 % (11.5-14.5); WHITE BLOOD COUNT 9.9 K/uL (4.8-10.8)
[2018-01-08 05:20] LABS: BLOOD UREA NITROGEN 20 mg/dl (7-17); CALCIUM 9.2 mg/dL (8.4-10.2); GFR AFRICAN-AMERICAN > 60; GFR NON-AFRICAN AMERICAN > 60
[2018-01-08] MEDS: Insulin Lispro (humaLOG) 100 Units/ml Inj SC SCH (06:35)
[2018-01-08 08:21] VITALS: TEMP 97.6; O2SAT 98
[2018-01-08] MEDS: Fluticasone-Salmeterol 100-50mcg Diskus IH SCH (08:36)
[2018-01-08] MEDS ORDERED: Enoxaparin 40 mg Syringe SC SCH (09:00)
[2018-01-08] MEDS ORDERED: Artificial Tears Opht Soln OU PRN (10:18)
[2018-01-08 10:38] VITALS: BP 104/68; PULSE 75
--- NOTE | 2018-01-08 16:55 | CP.PCM.DIS ---
Provider - Provider Date of Admission: 01/07/18 04:38 Attending physician: Sabina Moreno DO Primary care physician: Dr Holloway Consults: Cardio: DR Nieto Time Spent in preparation of Discharge (in minutes): 35 Diagnosis - Discharge Diagnosis (1) NSTEMI (non-ST elevated myocardial infarction) Status: Acute (2) DM type 2 (diabetes mellitus, type 2) Status: Chronic Hospital Course - Lab Results Lab Results: Most Recent Lab Values WBC 9.9 K/uL (4.8-10.8) 01/08/18 04:20 RBC 4.59 Mil/uL (3.80-5.20) 01/08/18 04:20 Hgb 13.6 g/dL (12.0-16.0) 01/08/18 04:20 Hct 41.2 % (34.0-47.0) 01/08/18 04:20 MCV 89.8 fl (81.0-99.0) 01/08/18 04:20 MCH 29.6 pg (27.0-31.0) 01/08/18 04:20 MCHC 32.9 g/dL (33.0-37.0) L 01/08/18 04:20 RDW 13.1 % (11.5-14.5) 01/08/18 04:20 Plt Count 249 K/uL (130-400) 01/08/18 04:20 MPV 8.2 fl (7.2-11.7) 01/07/18 00:31 Neut % (Auto) 51.0 % (50.0-75.0) 01/07/18 00:31 Lymph % (Auto) 29.8 % (20.0-40.0) 01/07/18 00:31 [place] % (Auto) 5.8 % (0.0-10.0) 01/07/18 00:31 Eos % (Auto) 12.6 % (0.0-4.0) H 01/07/18 00:31 Baso % (Auto) 0.8 % (0.0-2.0) 01/07/18 00:31 Neut # (Auto) 5.3 K/uL (1.8-7.0) 01/07/18 00:31 Lymph # (Auto) 3.1 K/uL (1.0-4.3) 01/07/18 00:31 [place] # (Auto) 0.6 K/uL (0.0-0.8) 01/07/18 00:31 Eos # (Auto) 1.3 K/uL (0.0-0.7) H 01/07/18 00:31 Baso # (Auto) 0.1 K/uL (0.0-0.2) 01/07/18 00:31 PT 10.1 Seconds (9.8-13.1) 01/07/18 00:31 INR 0.9 (0.9-1.2) 01/07/18 00:31 APTT 31.9 Seconds (25.6-37.1) 01/07/18 00:31 Sodium 143 mmol/l (132-148) 01/08/18 04:20 Potassium 3.7 MMOL/L (3.6-5.0) 01/08/18 04:20 Chloride 103 mmol/L (98-107) 01/08/18 04:20 Carbon Dioxide 25 mmol/L (22-30) 01/08/18 04:20 Anion Gap 19 (10-20) 01/08/18 04:20 BUN 20 mg/dl (7-17) H 01/08/18 04:20 Creatinine 0.7 mg/dl (0.7-1.2) 01/08/18 04:20 Est GFR ( Amer) > 60 01/08/18 04:20 Est GFR (Non-Af Amer) > 60 01/08/18 04:20 POC Glucose (mg/dL) 153 mg/dL (65-110) H 01/08/18 00:40 Random Glucose 155 mg/dL (65-105) H 01/08/18 04:20 Calcium 9.2 mg/dL (8.4-10.2) 01/08/18 04:20 Troponin I 0.0930 ng/mL (0.00-0.120) 01/07/18 16:40 Triglycerides 416 mg/DL (0-149) H 01/07/18 05:30 Cholesterol 141 mg/dL (0-199) 01/07/18 05:30 LDL Cholesterol Direct 42 mg/dL (0-129) 01/07/18 05:30 HDL Cholesterol 30 MG/DL (30-70) 01/07/18 05:30 Thyroxine (T4) 6.53 ug/dl (5.5-11.0) 01/07/18 16:40 Total T3 0.988 nmol/L (1.49-2.60) L 01/07/18 16:40 TSH 3rd Generation 4.03 mIU/ML (0.46-4.68) 01/07/18 16:40 Urine Color Colorless (YELLOW) 01/07/18 02:55 Urine Clarity Slighty-cloudy (Clear) 01/07/18 02:55 Urine pH 7.0 (5.0-8.0) 01/07/18 02:55 Ur Specific [place] < 1.005 (1.003-1.030) 01/07/18 02:55 Urine Protein Negative mg/dL (NEGATIVE) 01/07/18 02:55 Urine Glucose (UA) >=500 mg/dL (Normal) 01/07/18 02:55 Urine Ketones Negative mg/dL (NEGATIVE) 01/07/18 02:55 Urine Blood Negative (NEGATIVE) 01/07/18 02:55 Urine Nitrate Negative (NEGATIVE) 01/07/18 02:55 Urine Bilirubin Negative (NEGATIVE) 01/07/18 02:55 Urine Urobilinogen 0.2-1.0 mg/dL (0.2-1.0) 01/07/18 02:55 Ur Leukocyte Esterase Neg [place]/uL (Negative) 01/07/18 02:55 Urine RBC (Auto) 1 /hpf (0-3) 01/07/18 02:55 Urine Microscopic WBC 3 /hpf (0-5) 01/07/18 02:55 Ur Squamous Epith Cells < 1 /hpf (0-5) 01/07/18 02:55 Urine Bacteria Rare (<OCC) 01/07/18 02:55 Blood Type O POSITIVE 01/07/18 00:45 Blood Type Confirm O POSITIVE 01/07/18 07:30 Antibody Screen Negative 01/07/18 00:45 BBK History Checked No verified bt 01/07/18 00:45 - Hospital Course Hospital Course: 72 y/o lady with hx of DM , was brought because of chest discomfort and palpitation. EKG showed RBBB, ? St depression linf and lat leads. Patient was admitted to Telemetry and was started on ASA, Plavix, Statin and BB. The firs Troponin was negative however the second Trop was sl elevated at 0.16. Cardio was consulted and Dr Nieto rec Cardiac Cath. [place] [facility] [place] . 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 Dr Nieto recommended medical management. She was transferred back to our Tele unit after the procedure and was monitored overnight. Rpt Troponin was negative. Pt to ff up with dr Emilia carranza outpt in 1 wk Discharge Exam - Head Exam Head Exam: ATRAUMATIC, NORMAL INSPECTION, NORMOCEPHALIC - Eye Exam Eye Exam: EOMI, Normal appearance Pupil Exam: NORMAL ACCOMODATION - ENT Exam ENT Exam: Mucous Membranes Moist, Normal External Ear Exam - Neck Exam Neck exam: Full Rom - Respiratory Exam Respiratory Exam: Respiratory Distress, NORMAL BREATHING PATTERN - Cardiovascular Exam Cardiovascular Exam: REGULAR RHYTHM, +S1, +S2 - GI/Abdominal Exam GI & Abdominal Exam: Normal Bowel Sounds, Soft. absent: Tenderness - Extremities Exam Extremities exam: full ROM, normal capillary refill, pedal pulses present Additional comments: Right groin : area of cardiac entry : no hematoma, no bleeding - Back Exam Back exam: FULL ROM. absent: CVA tenderness (L), CVA tenderness (R) - Neurological Exam Neurological exam: Alert, CN II-XII Intact, Oriented x3, Reflexes Normal - Psychiatric Exam Psychiatric exam: Normal Affect, Normal Mood - Skin Skin Exam: Dry, Normal Color, Warm Discharge Plan - Discharge Medications Prescriptions: Aspirin [Aspirin Chewable] 81 mg PO DAILY #100 chew Atorvastatin [Lipitor] 40 mg PO DAILY #30 tab Clopidogrel [Plavix] 75 mg PO DAILY #30 tab Famotidine [Pepcid] 20 mg PO BID #60 tab Metoprolol Tartrate [Lopressor] 12.5 mg PO Q12 #60 tab - Follow Up Plan Condition: GOOD Disposition: HOME/ ROUTINE Instructions: Chest Pain (DC) Additional Instructions: ff up with Dr Nieto in [address] Holloway in 1-2 wks Hold Metformin x 48 hrs d/c Losartan Referrals: Maurice Nieto MD [Staff Provider] - Patrick Holloway MD [Family Provider] -
== END 2018-01-08 11:34 | disposition home or self-care (01) ==
LOC: H.ER 23:54 → H.ERHOLD 01-07 04:38 → H.TEL 01-07 06:52
PROVIDERS: ADMIT Student in an Organized Health Care Education/Training Program; ATTEND Student in an Organized Health Care Education/Training Program
DX: I21.4 Non-ST elevation (NSTEMI) myocardial infarction (principal); I25.10 Atherosclerotic heart disease of native coronary artery without angina pectoris; E11.9 Type 2 diabetes mellitus without complications; I10 Essential (primary) hypertension; F41.9 Anxiety disorder, unspecified; R79.89 Other specified abnormal findings of blood chemistry
CPT/HCPCS: 36415; 71275; 80048; 80061; 81003; 82948; 84436; 84443; 84480; 84484; 85025; 85027; 85610; 85730; 86850; 86900; 93005; 93306; 99285; G0378; J1650; J7040; Q9967

== ENCOUNTER 2018-01-17 14:36 | Inpatient (IN) | payer MEDICARE ==
[2018-01-17 14:37] VITALS: BMI 31.4
--- NOTE | 2018-01-17 15:16 | ED PDOC ---
HPI: Chest Pain Time Seen by Provider: 01/17/18 14:54 Chief Complaint (Nursing): Dizziness/Lightheaded Chief Complaint (Provider): Chest pain, dizziness for a few days - Sent by [place] History Per: Patient History/Exam Limitations: no limitations Onset/Duration Of Symptoms: Days Additional Complaint(s): 72 yo female sent to ER by Dr. Abrams, [place] [facility] for evaluation. Pt states she has been feeling lightheaded and SOB with left chest pain for a few days. Pt states that is why she went to her [place]. Pt states they called the ambulance to bring patient to ER. PT denies acute symptoms. - Risk Factors PE Risk Factors: Neg: Extremity Immobilization/Fx, Decreased Mobilty /Activity, Recent Major Surgery, Recent Hospitalization, Active Cancer, Previous DVT, Previous PE, CHF, Venous Stasis, Estrogen Usage, , Post-, Recent Major Trauma TAD Risk Factors: Pos: Hypertension Past Medical History Reviewed: Historical Data, Nursing Documentation, Vital Signs Vital Signs: Last Vital Signs Temp 97.3 F L 01/17/18 14:44 Pulse 43 L 01/17/18 14:44 Resp 16 01/17/18 14:44 BP 155/62 H 01/17/18 14:44 Pulse Ox 100 01/17/18 15:50 - Medical History PMH: Diabetes, HTN Denies: Chronic Kidney Disease - Surgical History Surgical History: No Surg Hx - Family History Family History: States: Unknown Family Hx - Living Arrangements Living Arrangements: With Family - Social History Current smoker - smoking cessation education provided: No Alcohol: None Drugs: Denies - Home Medications Home Medications: Ambulatory Orders Medication Instructions Recorded Dapagliflozin Propanediol [Farxiga] 10 mg PO DAILY 01/07/18 Ergocalciferol (Vitamin D2) 50,000 unit PO QWK 01/07/18 [Vitamin D2] Glimepiride [Amaryl] 4 mg PO BID 01/07/18 Clopidogrel [Plavix] 75 mg PO DAILY #30 tab 01/08/18 Famotidine [Pepcid] 20 mg PO BID #60 tab 01/08/18 Aspirin [Aspirin] 325 mg PO DAILY 01/17/18 Atorvastatin [Lipitor] 40 mg PO HS 01/17/18 Calcium/Vitamin D [Oyster Shell 1 tab PO BID 01/17/18 Calcium/Vitamin D 500 mg-200 IU] Diclofenac Sodium [Voltaren] 1 appl TOP Q12 PRN 01/17/18 Fluticasone Nasal [Flonase] 1 spray K[place]LIN Q12 PRN 01/17/18 Hydrocortisone [Proctosol-Hc] 1 appl TOP BID PRN 01/17/18 Losartan [Cozaar] 50 mg PO DAILY 01/17/18 MetFORMIN [glucoPHAGE] 1,000 mg PO BID 01/17/18 Metoprolol Tartrate [Lopressor] 50 mg PO Q12 01/17/18 - Allergies Allergies/Adverse Reactions: Allergies Allergy/AdvReac Type Severity Reaction Status Date / Time No Known Allergies Allergy Verified 01/17/18 14:43 MORGAN Risk Score for UA/NSTEMI - MORGAN Risk Score Age > 64: YES 3 or more CAD Risk Factors: YES Known CAD (Stenosis greater than 50%): YES Aspirin use in past 7 days: YES Severe Angina: NO EKG ST changes greater than 0.5mm: NO Positive Cardiac Marker: NO MORGAN Score: 4 Risk %: 20% Review of Systems ROS Statement: Except As Marked, All Systems Reviewed And Found Negative Constitutional: Negative for: Fever, Chills Cardiovascular: Positive for: Chest Pain - Laboratory Results Result Diagrams: 01/17/18 15:18 01/17/18 15:18 - ECG O2 Sat by Pulse Oximetry: 100 Medical Decision Making Medical Decision Making: Dr. Ba discussed case with Dr. Abrams, Dr. Westbrook for admission and Dr. Ash. Dr. Ash states patient is appropriate for telemetry floor. Dr. Phelps will be taking patient to the lab[facility] livestock, as per Dr. Abrams. EKG - Second Degree 1:2 AV block, Type II. Disposition - Clinical Impression Clinical Impression: Second degree AV block, Mobitz type II - Patient ED Disposition Is Patient to be Admitted: Yes - Disposition Disposition Time: 16:16 Condition: STABLE - Pt Status Changed To: Hospital Disposition Of: Inpatient - Admit Certification Admit to Inpatient:: After my assessment, the patient will require hospitalization for at least two midnights. This is because of the severity of symptoms shown, intensity of services needed, and/or the medical risk in this patient being treated as an outpatient. - POA Present On Arrival: None
[2018-01-17 15:30] LABS: BASO % 0.4 % (0.0-2.0); EOS # 0.9 K/uL (0.0-0.7); EOS % 9.3 % (0.0-4.0); HEMOGLOBIN 13.6 g/dL (12.0-16.0); LYMPH # 2.8 K/uL (1.0-4.3); LYMPH % 30.4 % (20.0-40.0); MEAN CELL VOLUME 90.3 fl (81.0-99.0); MEAN CORPUSCULAR HEMOGLOBIN 29.8 pg (27.0-31.0); MEAN PLATELET VOLUME 8.5 fl (7.2-11.7); MONO # 0.6 K/uL (0.0-0.8); MONO % 6.5 % (0.0-10.0); NEUT # 4.9 K/uL (1.8-7.0); NEUT % 53.4 % (50.0-75.0); RBC 4.56 Mil/uL (3.80-5.20); RED CELL DISTRIBUTION WIDTH 13.3 % (11.5-14.5); WHITE BLOOD COUNT 9.3 K/uL (4.8-10.8)
[2018-01-17 15:41] LABS: ALB/GLOB RATIO 1.3 (1.0-2.1); ALBUMIN 4.1 g/dL (3.5-5.0); ALT/SGPT 42 U/L (9-52); AST/SGOT 20 U/L (14-36); BLOOD UREA NITROGEN 24 mg/dl (7-17); CALCIUM 9.6 mg/dL (8.4-10.2); GFR AFRICAN-AMERICAN > 60; GFR NON-AFRICAN AMERICAN > 60
[2018-01-17 15:52] LABS: B-TYPE NATRIURETIC PEPTIDE 224 pg/ml (0-900)
[2018-01-17 15:59] LABS: SQUAMOUS EPITHIAL < 1 /hpf (0-5); URINE BACTERIA RARE (<OCC); URINE BILIRUBIN NEGATIVE (NEGATIVE); URINE BLOOD NEGATIVE (NEGATIVE); URINE CLARITY CLEAR (Clear); URINE COLOR COLORLESS (YELLOW); URINE GLUCOSE (UA) >=500 mg/dL (Normal); URINE LEUKOCYTE ESTERASE NEG Leu/uL (Negative); URINE PROTEIN NEGATIVE (NEGATIVE); URINE UROBILINOGEN 0.2-1.0 mg/dL (0.2-1.0)
--- NOTE | 2018-01-17 16:28 | RAD ---
HISTORY: Chest pressure COMPARISON: No prior. FINDINGS: LUNGS: No active pulmonary disease. PLEURA: No significant pleural effusion identified, no pneumothorax apparent. CARDIOVASCULAR: Normal. OSSEOUS STRUCTURES: No significant abnormalities. VISUALIZED UPPER ABDOMEN: Normal. OTHER FINDINGS: None. IMPRESSION: No active disease.
--- NOTE | 2018-01-17 17:19 | CP.PCM.CON ---
History of Present Illness - History of Present Illness History of Present Illness: consultation for high grade AV block and chest pains 72-year-old female who was seen by Dr. Abrams in the office for symptoms of ongoing dizziness and chest pain. Patient EKG showed to was 2 1 AV block and was sent to the emergency room for further evaluation and treatment she was last seen about 10 days ago at [facility] for non-ST elevation ID and was subsequently undergone a cardiac catheterization at an outside facility. Per her primary care physician she had 70% blockage in 1 of the obtuse marginal branches which were essentially too small for the reporting physician for any further revascularization strategy. Patient continues to have chest pain substernal pressure-like accompanied with severe dizziness and EKG in the emergency room shows a 2 his 2 1 AV block type II with right bundle branch block pattern suggestive of possible infrahisian disease. She has been severely symptomatic for the last 2-3 weeks and has not felt better complains of feeling lightheaded and dizzy all the time will likely need with substernal chest pressure-like sensations. Review of Systems - Review of Systems All systems: reviewed and no additional remarkable complaints except - Constitutional Constitutional: As Per HPI - EENT Eyes: As Per HPI Ears: As Per HPI - Cardiovascular Cardiovascular: As Per HPI - Respiratory Respiratory: As Per HPI - Gastrointestinal Gastrointestinal: As Per HPI - Genitourinary Genitourinary: As Per HPI - Reproductive: Female Reproductive:Female: As Per HPI - Menstruation Menstruation: As Per HPI - Musculoskeletal Musculoskeletal: As Per HPI - Integumentary Integumentary: As Per HPI - Neurological Neurological: As Per HPI - Psychiatric Psychiatric: As Per HPI - Endocrine Endocrine: As Per HPI - Hematologic/Lymphatic Hematologic: As Per HPI Past Patient History - Past Social History Alcohol: None Drugs: Denies - CARDIAC Hx Hypertension: Yes - PULMONARY Hx Respiratory Disorders: No - NEUROLOGICAL Hx Neurological Disorder: No - HEENT Hx HEENT Problems: No - RENAL Hx Chronic Kidney Disease: No - ENDOCRINE/METABOLIC Hx Endocrine Disorders: Yes (DM) - HEMATOLOGICAL/ONCOLOGICAL Hx Blood Disorders: No - INTEGUMENTARY Hx Dermatological Problems: No - MUSCULOSKELETAL/RHEUMATOLOGICAL Hx Musculoskeletal Disorders: No - GENITOURINARY/GYNECOLOGICAL Hx Genitourinary Disorders: No - PSYCHIATRIC Hx Psychophysiologic Disorder: No - SURGICAL HISTORY Hx Surgeries: No - ANESTHESIA Hx Anesthesia: No Meds Allergies/Adverse Reactions: Allergies Allergy/AdvReac Type Severity Reaction Status Date / Time No Known Allergies Allergy Verified 01/17/18 14:43 Physical Exam - Constitutional Appears: Well - Head Exam Head Exam: ATRAUMATIC, NORMAL INSPECTION, NORMOCEPHALIC - Eye Exam Eye Exam: EOMI, Normal appearance, PERRL Pupil Exam: NORMAL ACCOMODATION, PERRL - ENT Exam ENT Exam: Mucous Membranes Moist, Normal Exam - Neck Exam Neck exam: Positive for: Normal Inspection - Respiratory Exam Respiratory Exam: Clear to Auscultation Bilateral, NORMAL BREATHING PATTERN - Cardiovascular Exam Cardiovascular Exam: Bradycardia, RRR, +S1, +S2, Systolic Murmur - GI/Abdominal Exam GI & Abdominal Exam: Normal Bowel Sounds, Soft. absent: Tenderness - Extremities Exam Extremities exam: Positive for: normal inspection - Back Exam Back exam: NORMAL INSPECTION - Neurological Exam Neurological exam: Alert, CN II-XII Intact, Normal Gait, Oriented x3, Reflexes Normal - Psychiatric Exam Psychiatric exam: Normal Affect, Normal Mood - Skin Skin Exam: Dry, Intact, Normal Color, Warm Results - Vital Signs Recent Vital Signs: Last Vital Signs Temp 97.3 F L 01/17/18 14:44 Pulse 43 L 01/17/18 14:44 Resp 16 01/17/18 14:44 BP 155/62 H 01/17/18 14:44 Pulse Ox 100 01/17/18 16:16 - Labs Result Diagrams: 01/17/18 15:18 01/17/18 15:18 Labs: Laboratory Results - last 24 hr 01/17/18 01/17/18 01/17/18 15:18 15:18 15:43 WBC 9.3 RBC 4.56 Hgb 13.6 Hct 41.2 MCV 90.3 MCH 29.8 MCHC 33.0 RDW 13.3 Plt Count 277 MPV 8.5 Neut % (Auto) 53.4 Lymph % (Auto) 30.4 [place] % (Auto) 6.5 Eos % (Auto) 9.3 H Baso % (Auto) 0.4 Neut # (Auto) 4.9 Lymph # (Auto) 2.8 [place] # (Auto) 0.6 Eos # (Auto) 0.9 H Baso # (Auto) 0.0 Sodium 144 Potassium 4.2 Chloride 106 Carbon Dioxide 21 L Anion Gap 21 H BUN 24 H Creatinine 0.8 Est GFR ( Amer) > 60 Est GFR (Non-Af Amer) > 60 Random Glucose 130 H Calcium 9.6 Total Bilirubin 0.4 AST 20 ALT 42 Alkaline Phosphatase 91 Troponin I < 0.0120 NT-Pro-B Natriuret Pep 224 Total Protein 7.2 Albumin 4.1 Globulin 3.2 Albumin/Globulin Ratio 1.3 Urine Color Colorless Urine Clarity Clear Urine pH 6.0 Ur Specific [place] < 1.005 Urine Protein Negative Urine Glucose (UA) >=500 Urine Ketones Negative Urine Blood Negative Urine Nitrate Negative Urine Bilirubin Negative Urine Urobilinogen 0.2-1.0 Ur Leukocyte Esterase Neg Urine RBC (Auto) 1 Urine Microscopic WBC 1 Ur Squamous Epith Cells < 1 Urine Bacteria Rare Assessment & Plan (1) Second degree AV block, Mobitz type II Assessment and Plan: PPM evaluation on Saturday at [facility] telemetry monitoring hold BB Status: Acute (2) Dizziness Status: Acute (3) Abnormal EKG Status: Acute (4) Chest pain Assessment and Plan: get records of recent cath cont plavix Status: Acute (5) RBBB Status: Acute
--- NOTE | 2018-01-17 22:11 | CP.PCM.HP ---
Past Patient History - Past Social History Alcohol: None Drugs: Denies - CARDIAC Hx Hypertension: Yes - PULMONARY Hx Respiratory Disorders: No - NEUROLOGICAL Hx Neurological Disorder: No - HEENT Hx HEENT Problems: No - RENAL Hx Chronic Kidney Disease: No - ENDOCRINE/METABOLIC Hx Endocrine Disorders: Yes (DM) - HEMATOLOGICAL/ONCOLOGICAL Hx Blood Disorders: No - INTEGUMENTARY Hx Dermatological Problems: No - MUSCULOSKELETAL/RHEUMATOLOGICAL Hx Musculoskeletal Disorders: No - GENITOURINARY/GYNECOLOGICAL Hx Genitourinary Disorders: No - PSYCHIATRIC Hx Psychophysiologic Disorder: No - SURGICAL HISTORY Hx Surgeries: No - ANESTHESIA Hx Anesthesia: No Meds Allergies/Adverse Reactions: Allergies Allergy/AdvReac Type Severity Reaction Status Date / Time No Known Allergies Allergy Verified 01/17/18 14:43 Results - Vital Signs Recent Vital Signs: Last Vital Signs Temp 97.3 F L 01/17/18 14:44 Pulse 40 L 01/17/18 20:08 Resp 20 01/17/18 20:08 BP 127/75 01/17/18 20:08 Pulse Ox 96 01/17/18 20:08 - Labs Result Diagrams: 01/17/18 15:18 01/17/18 15:18 Labs: Laboratory Results - last 24 hr 01/17/18 01/17/18 01/17/18 15:18 15:18 15:43 WBC 9.3 RBC 4.56 Hgb 13.6 Hct 41.2 MCV 90.3 MCH 29.8 MCHC 33.0 RDW 13.3 Plt Count 277 MPV 8.5 Neut % (Auto) 53.4 Lymph % (Auto) 30.4 [place] % (Auto) 6.5 Eos % (Auto) 9.3 H Baso % (Auto) 0.4 Neut # (Auto) 4.9 Lymph # (Auto) 2.8 [place] # (Auto) 0.6 Eos # (Auto) 0.9 H Baso # (Auto) 0.0 Sodium 144 Potassium 4.2 Chloride 106 Carbon Dioxide 21 L Anion Gap 21 H BUN 24 H Creatinine 0.8 Est GFR ( Amer) > 60 Est GFR (Non-Af Amer) > 60 Random Glucose 130 H Calcium 9.6 Total Bilirubin 0.4 AST 20 ALT 42 Alkaline Phosphatase 91 Troponin I < 0.0120 NT-Pro-B Natriuret Pep 224 Total Protein 7.2 Albumin 4.1 Globulin 3.2 Albumin/Globulin Ratio 1.3 Urine Color Colorless Urine Clarity Clear Urine pH 6.0 Ur Specific [place] < 1.005 Urine Protein Negative Urine Glucose (UA) >=500 Urine Ketones Negative Urine Blood Negative Urine Nitrate Negative Urine Bilirubin Negative Urine Urobilinogen 0.2-1.0 Ur Leukocyte Esterase Neg Urine RBC (Auto) 1 Urine Microscopic WBC 1 Ur Squamous Epith Cells < 1 Urine Bacteria Rare
[2018-01-17] MEDS ORDERED: Atropine 0.4 mg/ml Inj (1 mL) IV PRN (22:54)
[2018-01-18 07:26] LABS: BASO % 0.3 % (0.0-2.0); EOS % 10.5 % (0.0-4.0); HEMOGLOBIN 13.1 g/dL (12.0-16.0); LYMPH % 44.7 % (20.0-40.0); MEAN CELL VOLUME 90.6 fl (81.0-99.0); MEAN CORPUSCULAR HEMOGLOBIN 30.2 pg (27.0-31.0); MEAN CORPUSCULAR HGB CONC 33.3 g/dL (33.0-37.0); MONO # 0.5 K/uL (0.0-0.8); MONO % 5.8 % (0.0-10.0); NEUT # 3.5 K/uL (1.8-7.0); NEUT % 38.7 % (50.0-75.0); NRBC % 0.1 % (0.0-0.0); RBC 4.33 Mil/uL (3.80-5.20); RED CELL DISTRIBUTION WIDTH 13.2 % (11.5-14.5)
[2018-01-18 07:47] LABS: ALB/GLOB RATIO 1.3 (1.0-2.1); ALBUMIN 3.7 g/dL (3.5-5.0); ALT/SGPT 38 U/L (9-52); AST/SGOT 19 U/L (14-36); BLOOD UREA NITROGEN 24 mg/dl (7-17); CALCIUM 9.3 mg/dL (8.4-10.2); GFR AFRICAN-AMERICAN > 60; GFR NON-AFRICAN AMERICAN > 60
[2018-01-18] MEDS: GlipiZIDE 10 mg SR Tab PO SCH (08:54)
[2018-01-18] MEDS: Enoxaparin 40 mg Syringe SC SCH (08:56)
[2018-01-18] MEDS ORDERED: Patient's Own Med (Glimepiride [Amaryl] 4 MG) PO SCH (09:00)
--- NOTE | 2018-01-18 14:38 | CARD ---
APPROVED REPORT EXAM: Two-dimensional and M-mode echocardiogram with Doppler and color Doppler. Other Information Quality : AverageRhythm : INDICATION Murmur 2D DIMENSIONS IVSd0.91 (0.7-1.1cm)LVDd4.19 (3.9-5.9cm) LVOT Diameter2.02 (1.8-2.4cm)PWd1.04 (0.7-1.1cm) LVDs3.22 (2.5-4.0cm)FS (%) 23.2 % M-Mode DIMENSIONS Left Atrium (MM)3.83 (2.5-4.0cm)IVSd0.84 (0.7-1.1cm) Aortic Root2.64 (2.2-3.7cm)LVDd4.17 (4.0-5.6cm) Aortic Cusp Exc.1.65 (1.5-2.0cm)PWd1.00 (0.7-1.1cm) FS (%) 43 %LVDs2.36 (2.0-3.8cm) Aortic Valve AoV Peak Bdrfrvwm138.8cm/sAoV VTI47.4cmAO Peak GR.20mmHg LVOT Peak Vtugwqve166.7cm/sLVOT VTI30.46cmAO Mean GR.10mmHg JOMAR (VMAX)1.32gt1GRY (VTI)1.67eh1VZ P 1/2 Clva1817gd Mitral Valve MV E Peak Gr.52mmHgE/A ratio0.0 TDI Lateral E' Peak V8.88cm/sMedial E' Peak V9.04cm/sE/Lateral E'0.0 E/Medial E'0.0 Pulmonary Valve PV Peak Vbzbipks887.1cm/s Tricuspid Valve TR Peak Sqqyseyc502lc/sTR Peak Gr.19mmHg LEFT VENTRICLE The left ventricle is normal size. There is mild concentric left ventricular hypertrophy. Left ventricle systolic function is normal. The Ejection Fraction is 65-70%. There is normal LV segmental wall motion. Transmitral Doppler flow pattern is Grade I-abnormal relaxation pattern. RIGHT VENTRICLE The right ventricle is normal size. There is normal right ventricular wall thickness. The right ventricular systolic function is normal. ATRIA The left atrium size is normal. The right atrium size is normal. AORTIC VALVE The aortic valve is mildly sclerotic. There is mild aortic regurgitation. There was a mild sysolic gradient of 19 mm Hg at the aortic valve. MITRAL VALVE The mitral valve is normal in structure. There is no evidence of mitral valve prolapse. There is no mitral valve stenosis. Mitral regurgitation is mild. TRICUSPID VALVE The tricuspid valve is normal in structure. There is mild tricuspid regurgitation. Right ventricular systolic pressure is estimated at 33 mmHg. There is mild pulmonary hypertension. PULMONIC VALVE The pulmonary valve is normal in structure. There is no pulmonic valvular regurgitation. GREAT VESSELS The aortic root is normal in size. The IVC is normal in size and collapses >50% with inspiration. PERICARDIAL EFFUSION The pericardium appears normal. <Conclusion> Patient displayed a 2:1 A:V block through out the study. The left ventricle is normal size. There is mild concentric left ventricular hypertrophy. There is normal LV segmental wall motion. Left ventricle systolic function is normal. The Ejection Fraction is 65-70%. Transmitral Doppler flow pattern is Grade I-abnormal relaxation pattern.
--- NOTE | 2018-01-18 15:02 | CARD ---
APPROVED REPORT EKG Measurement Heart [id number] <Conclusion> Sinus rhythm with 2nd degree (Type II) A:V block 2:1 A:A conduction Right bundle branch block Abnormal ECG
--- NOTE | 2018-01-18 16:30 | CP.PCM.PN ---
Objective - Vital Signs/Intake and Output Vital Signs (last 24 hours): Temp Pulse Resp BP Pulse Ox 98.1 F 41 L 18 109/56 L 97 01/18/18 12:00 01/18/18 12:00 01/18/18 12:00 01/18/18 12:00 01/18/18 12:00 - Medications Medications: Current Medications Aspirin (Aspirin) 325 mg PO DAILY [facility] Last Admin: 01/18/18 08:56 Dose: 325 mg Atorvastatin Calcium (Lipitor) 40 mg PO HS [facility] Atropine Sulfate (Atropine) 0.5 mg IV ONCE PRN PRN Reason: Systolic Blood Pressure Clopidogrel Bisulfate (Plavix) 75 mg PO DAILY [facility] Last Admin: 01/18/18 08:54 Dose: 75 mg Enoxaparin Sodium (Lovenox) 40 mg SC DAILY [facility] PRN Reason: Protocol Last Admin: 01/18/18 08:56 Dose: 40 mg Famotidine (Pepcid) 20 mg PO BID [facility] Last Admin: 01/18/18 08:54 Dose: 20 mg Glipizide (Glucotrol Xl) 10 mg PO BRK [facility] Last Admin: 01/18/18 08:54 Dose: 10 mg Losartan Potassium (Cozaar) 50 mg PO DAILY [facility] Last Admin: 01/18/18 08:54 Dose: 50 mg Metformin HCl (Glucophage) 1,000 mg PO BID [facility] Last Admin: 01/18/18 08:54 Dose: 1,000 mg - Labs Labs: 01/18/18 05:34 01/18/18 05:34
[2018-01-19] MEDS: GlipiZIDE 10 mg SR Tab PO SCH (08:42)
[2018-01-19] MEDS: Enoxaparin 40 mg Syringe SC SCH (08:42)
--- NOTE | 2018-01-19 08:59 | PN ---
DATE: 01/19/2018 SUBJECTIVE: The patient is seen and examined. Interim events noted. Consults noted and appreciated. The patient remains in Progressive Care Unit on telemetry monitoring. The patient feels okay. Denies any chest pain, shortness of breath, dizziness, or loss of consciousness. PHYSICAL EXAMINATION: GENERAL: The patient is in no acute distress. VITAL SIGNS: Stable. HEART: S1 and S2 normal and regular. LUNGS: Good bilateral air exchange. GASTROINTESTINAL: Abdomen is soft and nontender. EXTREMITIES: No edema. No swelling or tenderness. No acute ischemia. CENTRAL NERVOUS SYSTEM: Exam is essentially unchanged. DIAGNOSTIC DATA: Available diagnostic data reviewed. Telemetry monitoring does not show significant arrhythmias. IMPRESSION AND PLAN: Overall, the patient's general medical condition is stable. Plan as ordered. Kyler Westbrook MD
[2018-01-20 05:31] VITALS: TEMP 98.2
[2018-01-20 06:09] LABS: HEMOGLOBIN 13.9 g/dL (12.0-16.0); MEAN CELL VOLUME 90.9 fl (81.0-99.0); MEAN CORPUSCULAR HGB CONC 33.1 g/dL (33.0-37.0); RBC 4.62 Mil/uL (3.80-5.20); RED CELL DISTRIBUTION WIDTH 13.7 % (11.5-14.5); WHITE BLOOD COUNT 11.6 K/uL (4.8-10.8)
[2018-01-20 06:19] LABS: ALB/GLOB RATIO 1.2 (1.0-2.1); ALBUMIN 3.9 g/dL (3.5-5.0); ALT/SGPT 27 U/L (9-52); AST/SGOT 20 U/L (14-36); BLOOD UREA NITROGEN 18 mg/dl (7-17); CALCIUM 9.5 mg/dL (8.4-10.2); GFR AFRICAN-AMERICAN > 60; GFR NON-AFRICAN AMERICAN > 60
--- NOTE | 2018-01-20 07:31 | CARD ---
APPROVED REPORT EKG Measurement Heart [id number] <Conclusion> Sinus bradycardia Right bundle branch block Abnormal ECG
[2018-01-20 08:15] VITALS: BP 141/65; RESP 18; O2SAT 98
[2018-01-20] MEDS: GlipiZIDE 10 mg SR Tab PO SCH (08:48)
[2018-01-20] MEDS: Enoxaparin 40 mg Syringe SC SCH (09:07)
--- NOTE | 2018-01-20 09:12 | PN ---
DATE: 01/20/2018 SUBJECTIVE: The patient is seen and examined. Interim events noted. Consults noted and appreciated. The patient remains in Progressive Care Unit on telemetry monitoring. Feels okay. Denies any chest pain, shortness of breath, dizziness or loss of consciousness. PHYSICAL EXAMINATION: GENERAL: The patient is in no acute distress. VITAL SIGNS: Stable. HEART: S1 and S2, normal and regular. LUNGS: Good bilateral air exchange. ABDOMEN: Soft and nontender. EXTREMITIES: No edema. No calf swelling. No tenderness. No acute ischemia. [employer]: Essentially unchanged. DIAGNOSTIC DATA: Available diagnostic data reviewed. Telemetry monitoring reveals 2:1 block. Echocardiogram also shows cardiac function seems to be okay. PLAN: Overall, the patient is hemodynamically stable. The patient is possible pacemaker placement today. Plan as ordered. Case and plan discussed with the patient. Kyler Westbrook MD
[2018-01-20 16:59] VITALS: PULSE 43
== END 2018-01-20 10:30 | disposition short-term general hospital (02) | DRG 310 ==
LOC: H.ER 14:36 → H.ERHOLD 15:46 → H.TEL 21:01
PROVIDERS: ADMIT Internal Medicine; ATTEND Internal Medicine
DX: I44.1 Atrioventricular block, second degree (principal); E11.9 Type 2 diabetes mellitus without complications; I45.10 Unspecified right bundle-branch block; I10 Essential (primary) hypertension; Z79.82 Long term (current) use of aspirin; Z79.02 Long term (current) use of antithrombotics/antiplatelets; Z79.84 Long term (current) use of oral hypoglycemic drugs

== ENCOUNTER 2018-02-09 13:52 | Emergency (ER) | payer MEDICARE ==
[2018-02-09 13:52] VITALS: BMI 31.4
[2018-02-09 13:56] VITALS: RESP 18; TEMP 97.7; O2SAT 100
--- NOTE | 2018-02-09 14:34 | ED PDOC ---
HPI: Abdomen Time Seen by Provider: 02/09/18 13:59 Chief Complaint (Nursing): Abdominal Pain Chief Complaint (Provider): constipation History Per: Patient History/Exam Limitations: no limitations Onset/Duration Of Symptoms: Days (3x) Associated Symptoms: Constipation. denies: Diarrhea Additional Complaint(s): 72 year old female presents to the ED complaining of discomfort and constipation onset three days ago. Reports of small stool. She is not able to pass gas. Patient is status post pacemaker insertion. Denies diarrhea. PMD: Patrick Holloway Past Medical History Reviewed: Historical Data, Nursing Documentation, Vital Signs Vital Signs: Last Vital Signs Temp 97.7 F 02/09/18 13:55 Pulse 79 02/09/18 13:55 Resp 18 02/09/18 13:55 BP 166/75 H 02/09/18 13:55 Pulse Ox 100 02/09/18 14:38 - Medical History PMH: Diabetes, HTN Denies: HIV, Chronic Kidney Disease - Surgical History Surgical History: Pacemaker - Family History Family History: States: Unknown Family Hx - Social History Current smoker - smoking cessation education provided: No Alcohol: None Drugs: Denies - Home Medications Home Medications: Ambulatory Orders Medication Instructions Recorded Dapagliflozin Propanediol [Farxiga] 10 mg PO DAILY 01/07/18 Ergocalciferol (Vitamin D2) 50,000 unit PO QWK 01/07/18 [Vitamin D2] Glimepiride [Amaryl] 4 mg PO BID 01/07/18 Clopidogrel [Plavix] 75 mg PO DAILY #30 tab 01/08/18 Famotidine [Pepcid] 20 mg PO BID #60 tab 01/08/18 Aspirin [Aspirin] 325 mg PO DAILY 01/17/18 Atorvastatin [Lipitor] 40 mg PO HS 01/17/18 Calcium/Vitamin D [Oyster Shell 1 tab PO BID 01/17/18 Calcium/Vitamin D 500 mg-200 IU] Diclofenac Sodium [Voltaren] 1 appl TOP Q12 PRN 01/17/18 Fluticasone Nasal [Flonase] 1 spray KAITLIN Q12 PRN 01/17/18 Hydrocortisone [Proctosol-Hc] 1 appl TOP BID PRN 01/17/18 Losartan [Cozaar] 50 mg PO DAILY 01/17/18 MetFORMIN [glucoPHAGE] 1,000 mg PO BID 01/17/18 Metoprolol Tartrate [Lopressor] 50 mg PO Q12 01/17/18 Polyethylene Glycol 3350 [Miralax] 17 gm PO DAILY #10 dose 02/09/18 - Allergies Allergies/Adverse Reactions: Allergies Allergy/AdvReac Type Severity Reaction Status Date / Time No Known Allergies Allergy Verified 02/09/18 13:53 Review of Systems ROS Statement: Except As Marked, All Systems Reviewed And Found Negative Gastrointestinal: Positive for: Constipation (3x). Negative for: Diarrhea Psych: Negative for: Suicidal ideation (homicidal ideation) Physical Exam - Reviewed Nursing Documentation Reviewed: Yes Vital Signs Reviewed: Yes - Physical Exam Appears: Positive for: Non-toxic, No Acute Distress Head Exam: Positive for: ATRAUMATIC, NORMAL INSPECTION, NORMOCEPHALIC Skin: Positive for: Normal Color, Warm, Dry Cardiovascular/Chest: Positive for: Regular Rate, Rhythm. Negative for: Murmur Respiratory: Positive for: Normal Breath Sounds. Negative for: Decreased Breath Sounds, Accessory Muscle Use, Respiratory Distress Gastrointestinal/Abdominal: Positive for: Normal Exam, Bowel Sounds, Soft. Negative for: Distended Neurologic/Psych: Positive for: Alert, Oriented (x3) - ECG O2 Sat by Pulse Oximetry: 100 (RA) Pulse Ox Interpretation: Normal Medical Decision Making Medical Decision Making: Time: 1421 Initial Plan: --Enema -Tap water and soap once --Reevaluation Scribe Attestation: Documented by Bib Panda, acting as a scribe for Joelle Metzger MD Provider Scribe Attestation: All medical record entries made by the Scribe were at my direction and personally dictated by me. I have reviewed the chart and agree that the record accurately reflects my personal performance of the history, physical exam, medical decision making, and the department course for this patient. I have also personally directed, reviewed, and agree with the discharge instructions and disposition. Disposition - Clinical Impression Clinical Impression: Constipation - Patient ED Disposition Is Patient to be Admitted: No Counseled Patient/Family Regarding: Diagnosis, Need For Followup, Rx Given - Disposition Referrals: [facility] [Outside] Disposition: Routine/Home Disposition Time: 15:59 Condition: FAIR Prescriptions: Polyethylene Glycol 3350 [Miralax] 17 gm PO DAILY #10 dose Instructions: Constipation in Adults Forms: [facility] (Setswana) Print Language: BENGALI
[2018-02-09 16:07] VITALS: BP 121/75; PULSE 74
== END 2018-02-09 16:42 | disposition home or self-care (01) ==
LOC: H.ER 13:52
DX: K59.00 Constipation, unspecified (principal); Z95.0 Presence of cardiac pacemaker; Z98.890 Other specified postprocedural states; E11.9 Type 2 diabetes mellitus without complications; I10 Essential (primary) hypertension; Z79.82 Long term (current) use of aspirin; Z79.84 Long term (current) use of oral hypoglycemic drugs

== ENCOUNTER 2018-03-16 03:59 | Emergency (ER) | payer MEDICARE ==
[2018-03-16 04:00] VITALS: BMI 23.9
[2018-03-16 04:17] VITALS: BP 127/77; PULSE 98; RESP 18; TEMP 97.5; O2SAT 97
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
== END 2018-03-16 05:15 | disposition home or self-care (01) ==
LOC: H.ER 03:59
DX: Z77.098 Contact with and (suspected) exposure to other hazardous, chiefly nonmedicinal, chemicals (principal); E11.9 Type 2 diabetes mellitus without complications; Z79.84 Long term (current) use of oral hypoglycemic drugs; I10 Essential (primary) hypertension; Z79.82 Long term (current) use of aspirin; Z95.0 Presence of cardiac pacemaker

== ENCOUNTER 2018-03-23 15:22 | Emergency (ER) | payer MEDICARE ==
[2018-03-23 15:22] VITALS: BMI 23.9
[2018-03-23 15:26] VITALS: TEMP 98.2
--- NOTE | 2018-03-23 16:54 | ED PDOC ---
HPI: Chest Pain Time Seen by Provider: 03/23/18 15:44 Chief Complaint (Nursing): Psychiatric Evaluation Chief Complaint (Provider): Chest Pain History Per: Patient, Family History/Exam Limitations: language barrier Onset/Duration Of Symptoms: Hrs (several) Current Symptoms Are (Timing): Better Quality: Dull, Aching Modifying Factors: None Additional Complaint(s): Pt is in a rest facility and according to her family is constantly complaining of chest pain believing that her past history of ACS will result in her demise. 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 - Risk Factors TAD Risk Factors: Pos: Hypertension Past Medical History Reviewed: Historical Data, Nursing Documentation, Vital Signs Vital Signs: Last Vital Signs Temp 98.2 F 03/23/18 15:24 Pulse 102 H 03/23/18 19:49 Resp 18 03/23/18 19:49 BP 130/91 H 03/23/18 19:49 Pulse Ox 98 03/23/18 20:27 - Medical History PMH: Anxiety, Diabetes, HTN Denies: HIV, Chronic Kidney Disease - Surgical History Surgical History: Pacemaker (2018) - Family History Family History: States: Unknown Family Hx - Home Medications Home Medications: Ambulatory Orders Medication Instructions Recorded Glimepiride [Amaryl] 4 mg PO BID 01/07/18 Clopidogrel [Plavix] 75 mg PO DAILY #30 tab 01/08/18 Famotidine [Pepcid] 20 mg PO BID #60 tab 01/08/18 Calcium/Vitamin D [Oyster Shell 1.25 mg PO BID 01/17/18 Calcium/Vitamin D 500 mg-200 IU] Losartan [Cozaar] 50 mg PO DAILY 01/17/18 MetFORMIN [glucoPHAGE] 1,000 mg PO BID 01/17/18 Metoprolol Tartrate [Lopressor] 25 mg PO BID 01/17/18 Dapagliflozin Propanediol [Farxiga] 10 mg PO DAILY 03/07/18 Latanoprost 0.005% Opht [Xalatan 1 drop OU HS 03/07/18 Opht] ALPRAZolam [Xanax] 0.5 mg PO DAILY 03/23/18 Atorvastatin Calcium 40 mg PO DAILY 03/23/18 Fluticasone Propionate [Flovent 50 mcg IH DAILY 03/23/18 Diskus] - Allergies Allergies/Adverse Reactions: Allergies Allergy/AdvReac Type Severity Reaction Status Date / Time No Known Allergies Allergy Verified 03/23/18 15:24 MORGAN Risk Score for UA/NSTEMI - MORGAN Risk Score Age > 64: YES 3 or more CAD Risk Factors: YES Known CAD (Stenosis greater than 50%): NO Aspirin use in past 7 days: YES Severe Angina: NO EKG ST changes greater than 0.5mm: NO Positive Cardiac Marker: NO MORGAN Score: 3 Risk %: 13% Review of Systems ROS Statement: Except As Marked, All Systems Reviewed And Found Negative Cardiovascular: Positive for: Chest Pain, Orthopnea. Negative for: Edema, Light Headedness Respiratory: Positive for: Shortness of Breath Physical Exam - Reviewed Nursing Documentation Reviewed: Yes Vital Signs Reviewed: Yes - Physical Exam Appears: Positive for: Well, Non-toxic, No Acute Distress. Negative for: Uncomfortable Head Exam: Positive for: ATRAUMATIC, NORMAL INSPECTION, NORMOCEPHALIC Skin: Positive for: Normal Color, Warm, Dry Eye Exam: Positive for: Normal appearance. Negative for: Periorbital swelling, Periorbital tenderness Neck: Positive for: Normal, Painless ROM, Supple. Negative for: Decreased ROM Cardiovascular/Chest: Positive for: Regular Rate, Rhythm, Chest Non Tender. Negative for: Edema, Gallop, Murmur, Bradycardia, Tachycardia, Friction Rub, Irregularly Irregular Respiratory: Positive for: Normal Breath Sounds. Negative for: Decreased Breath Sounds, Accessory Muscle Use, Crackles, Rales, Rhonchi, Stridor, Wheezing , Respiratory Distress Pulses-Carotid (L): 2+ Pulses-Carotid (R): 2+ Pulses-Radial (L): 2+ Pulses-Radial (R): 2+ - Laboratory Results Result Diagrams: 03/23/18 17:24 03/23/18 17:24 - ECG O2 Sat by Pulse Oximetry: 98 Medical Decision Making Medical Decision Making: [facility] family, the pt has anxiety issues and is in fear of dying from her earlier ACS issues and she is constantly complaining of chest pain that is apparenly not real Cardiac Workup CBC (-) CMP (-) BNP (-) EKG (-) CXR (-) Trop (-) After medical clearance, patient referred from Crisis Counseling in view toward outpatient services Disposition - Clinical Impression Clinical Impression: Anxiety, Anxiety about health - Patient ED Disposition Is Patient to be Admitted: No Discussed With : Helena Mehta (psych cleared) Doctor Will See Patient In The: Office Counseled Patient/Family Regarding: Diagnosis, Need For Followup - Disposition Disposition: Other Institution Disposition Time: 20:27 Condition: GOOD Additional Instructions: Outpatient referrals provided by Crisis Instructions: Anxiety, Adult (DC) Forms: [employer] (Croatian), [employer] ([place])
[2018-03-23 17:29] LABS: BASO % 0.5 % (0.0-2.0); EOS # 0.8 K/uL (0.0-0.7); EOS % 9.2 % (0.0-4.0); HEMOGLOBIN 13.7 g/dL (12.0-16.0); LYMPH # 2.6 K/uL (1.0-4.3); LYMPH % 28.1 % (20.0-40.0); MEAN CELL VOLUME 89.7 fl (81.0-99.0); MEAN CORPUSCULAR HEMOGLOBIN 31.1 pg (27.0-31.0); MEAN CORPUSCULAR HGB CONC 34.7 g/dL (33.0-37.0); MEAN PLATELET VOLUME 7.8 fl (7.2-11.7); MONO # 0.5 K/uL (0.0-0.8); MONO % 5.4 % (0.0-10.0); NEUT # 5.2 K/uL (1.8-7.0); NEUT % 56.8 % (50.0-75.0); RBC 4.41 Mil/uL (3.80-5.20); WHITE BLOOD COUNT 9.2 K/uL (4.8-10.8)
[2018-03-23 17:37] LABS: SQUAMOUS EPITHIAL 1 /hpf (0-5); URINE BACTERIA RARE (<OCC); URINE BILIRUBIN NEGATIVE (NEGATIVE); URINE BLOOD NEGATIVE (NEGATIVE); URINE CLARITY CLEAR (Clear); URINE COLOR STRAW (YELLOW); URINE GLUCOSE (UA) NEG (Normal); URINE LEUKOCYTE ESTERASE NEG Leu/uL (Negative); URINE PROTEIN NEGATIVE (NEGATIVE); URINE UROBILINOGEN 0.2-1.0 mg/dL (0.2-1.0)
[2018-03-23 17:38] LABS: ALB/GLOB RATIO 1.3 (1.0-2.1); ALBUMIN 4.2 g/dL (3.5-5.0); ALT/SGPT 30 U/L (9-52); AST/SGOT 30 U/L (14-36); BLOOD UREA NITROGEN 18 mg/dl (7-17); GFR AFRICAN-AMERICAN > 60; GFR NON-AFRICAN AMERICAN > 60; LIPASE 100 U/L (23-300)
--- NOTE | 2018-03-23 17:49 | RAD ---
HISTORY: r/o cardiomeg COMPARISON: 01/17/2018 TECHNIQUE: Chest PA and lateral FINDINGS: LUNGS: No active pulmonary disease. PLEURA: No significant pleural effusion identified. No pneumothorax apparent. CARDIOVASCULAR: Permanent pacemaker. Normal heart size. No congestive change. OSSEOUS STRUCTURES: No significant abnormalities. VISUALIZED UPPER ABDOMEN: Normal. OTHER FINDINGS: None. IMPRESSION: No active disease.
[2018-03-23 17:50] LABS: B-TYPE NATRIURETIC PEPTIDE 112 pg/ml (0-900)
[2018-03-23 19:50] VITALS: RESP 18
[2018-03-23 20:36] VITALS: BP 122/74; PULSE 85; O2SAT 99
--- NOTE | 2018-03-24 07:56 | CARD ---
APPROVED REPORT EKG Measurement Heart [id number] NH 176P9 [id number] <Conclusion> Atrial-sensed ventricular-paced rhythm Abnormal ECG
== END 2018-03-23 20:35 | disposition home or self-care (01) ==
LOC: H.ER 15:22
DX: R06.09 Other forms of dyspnea (principal); F41.9 Anxiety disorder, unspecified; E11.9 Type 2 diabetes mellitus without complications; E78.5 Hyperlipidemia, unspecified; I10 Essential (primary) hypertension; Z79.84 Long term (current) use of oral hypoglycemic drugs; Z95.0 Presence of cardiac pacemaker

== ENCOUNTER 2018-04-19 00:20 | Emergency (ER) | payer MEDICARE ==
[2018-04-19 00:20] VITALS: BMI 23.9
[2018-04-19 00:30] VITALS: TEMP 98.3
--- NOTE | 2018-04-19 01:15 | ED PDOC ---
HPI: SOB/CHF/COPD Time Seen by Provider: 04/19/18 00:38 Chief Complaint (Nursing): Shortness Of Breath Chief Complaint (Provider): shortness of breath History Per: Patient History/Exam Limitations: no limitations Onset/Duration Of Symptoms: Hrs (4) Current Symptoms Are (Timing): Gone Now Additional Complaint(s): Ama Ball is a 73 year old female, with a past medical history of diabetes , heart disease, HTN, depression, anxiety and pacemaker, who presents to the emergency department via EMS complaining of feeling tremulousness, anxiety and shortness of breath after taking Zoloft for the first time at 21:00. Patient states she took 100mg around 9pm for the first time, 1 hour later she felt like she couldn't breath and states she was "bad all over." On arrival she started to feel somewhat better. She denies any chest pain and states shortness of breath has resolved. No further medical complaints. PMD: Patrick Holloway Past Medical History Reviewed: Historical Data, Nursing Documentation, Vital Signs Vital Signs: Last Vital Signs Temp 98.3 F 04/19/18 00:26 Pulse 67 04/19/18 05:04 Resp 12 04/19/18 05:04 BP 139/87 04/19/18 00:26 Pulse Ox 99 04/19/18 06:10 - Medical History PMH: Anxiety, Depression, Diabetes, HTN Denies: HIV, Chronic Kidney Disease - Surgical History Surgical History: Pacemaker (2018) - Family History Family History: States: Unknown Family Hx - Home Medications Home Medications: Ambulatory Orders Medication Instructions Recorded Glimepiride [Amaryl] 4 mg PO BID 01/07/18 Clopidogrel [Plavix] 75 mg PO DAILY #30 tab 01/08/18 Famotidine [Pepcid] 20 mg PO BID #60 tab 01/08/18 Calcium/Vitamin D [Oyster Shell 1.25 mg PO BID 01/17/18 Calcium/Vitamin D 500 mg-200 IU] Losartan [Cozaar] 50 mg PO DAILY 01/17/18 MetFORMIN [glucoPHAGE] 1,000 mg PO BID 01/17/18 Metoprolol Tartrate [Lopressor] 25 mg PO BID 01/17/18 Dapagliflozin Propanediol [Farxiga] 10 mg PO DAILY 03/07/18 Latanoprost 0.005% Opht [Xalatan 1 drop OU HS 03/07/18 Opht] ALPRAZolam [Xanax] 0.5 mg PO DAILY 03/23/18 Atorvastatin Calcium 40 mg PO DAILY 03/23/18 Fluticasone Propionate [Flovent 50 mcg IH DAILY 03/23/18 Diskus] - Allergies Allergies/Adverse Reactions: Allergies Allergy/AdvReac Type Severity Reaction Status Date / Time No Known Allergies Allergy Verified 03/23/18 15:24 Review of Systems ROS Statement: Except As Marked, All Systems Reviewed And Found Negative Cardiovascular: Negative for: Chest Pain Respiratory: Positive for: Shortness of Breath (resolved) Psych: Positive for: Anxiety Physical Exam - Reviewed Nursing Documentation Reviewed: Yes Vital Signs Reviewed: Yes - Physical Exam Appears: Positive for: Non-toxic (anxious and tearful) Head Exam: Positive for: ATRAUMATIC, NORMOCEPHALIC Skin: Positive for: Normal Color, Warm, Dry Eye Exam: Positive for: Normal appearance, EOMI, PERRL Neck: Positive for: Painless ROM, Supple Cardiovascular/Chest: Positive for: Regular Rate, Rhythm, Other (pacemaker site clean, no swelling or erythema). Negative for: Murmur Respiratory: Positive for: Normal Breath Sounds. Negative for: Respiratory Distress Gastrointestinal/Abdominal: Positive for: Normal Exam, Soft. Negative for: Tenderness Back: Negative for: L CVA Tenderness, R CVA Tenderness, Vertebral Tenderness Extremity: Positive for: Normal ROM (upper and lower extremities). Negative for : Deformity, Swelling Neurologic/Psych: Positive for: Alert, Oriented. Negative for: Motor/Sensory Deficits - ECG O2 Sat by Pulse Oximetry: 99 (RA) Pulse Ox Interpretation: Normal Medical Decision Making Medical Decision Making: Time: 00:38 A/P: 73 y/o female with history of diabetes, heart disease, HTN, depression, anxiety and pacemaker in place presents with shortness of breath and anxiety. Patient has normal vital signs. EKG shows functioning pacemaker. -Patient likely suffered from medicine side effect compounded from prior anxiety. Patient placed on cardiac cath lab manager and observed. -Not suspicious of any cardiac or respiratory involved. Plan: --EKG --Reevaluation 06:07 -Patient reports feeling much better. Upon provider reevaluation patient is feeling better, is medically stable, and requires no further treatment in the ED at this time. Patient will be discharged home. Counseling was provided and all questions were answered regarding diagnosis and need for follow up with PMD. There is agreement to discharge plan. Return if symptoms persist or worsen. ----- Scribe Attestation: Documented by Jalen Chinchilla, acting as a scribe for Erik Armstrong MD. Provider Scribe Attestation: All medical record entries made by the Scribe were at my direction and personally dictated by me. I have reviewed the chart and agree that the record accurately reflects my personal performance of the history, physical exam, medical decision making, and the department course for this patient. I have also personally directed, reviewed, and agree with the discharge instructions and disposition. Disposition - Clinical Impression Clinical Impression: Anxiety - Patient ED Disposition Is Patient to be Admitted: No - Disposition Disposition: Routine/Home Disposition Time: 06:07 Condition: STABLE Instructions: Anxiety, Adult (DC) Forms: [employer] (Bots[place]an) Print Language: SAUDI ARABIAN
[2018-04-19 06:10] VITALS: O2SAT 99
[2018-04-19 06:36] VITALS: BP 135/67; PULSE 74; RESP 15
--- NOTE | 2018-04-21 11:28 | CARD ---
APPROVED REPORT EKG Measurement Heart [id number] MI 154P1 [id number] <Conclusion> Atrial-sensed ventricular-paced rhythm Abnormal ECG
== END 2018-04-19 07:12 | disposition home or self-care (01) ==
LOC: H.ER 00:20
DX: F41.9 Anxiety disorder, unspecified (principal); R06.02 Shortness of breath; E11.9 Type 2 diabetes mellitus without complications; F32.9 Major depressive disorder, single episode, unspecified; I10 Essential (primary) hypertension; Z79.84 Long term (current) use of oral hypoglycemic drugs; Z95.0 Presence of cardiac pacemaker